=== PATIENT | female | born 1950 | race Hispanic/Latino ===

== ENCOUNTER 2017-12-07 08:55 | Day surgery (SDC) | payer MEDICARE ==
[2017-11-30 09:03] VITALS: BMI 20.2
[2017-12-07] MEDS ORDERED: Propofol 10 mg/ml Inj (20 ML) ONE ×2 (10:38→11:34)
[2017-12-07] MEDS ORDERED: Midazolam 2 MG/2 ML VIAL ONE (10:38)
[2017-12-07] MEDS ORDERED: Sodium Chloride 0.9% 1,000 ML IV SCH (11:00)
[2017-12-07 14:45] VITALS: BP 132/77; PULSE 74; RESP 16; TEMP 98.3; O2SAT 100
== END 2017-12-07 14:22 | disposition home or self-care (01) ==
LOC: ENDO 08:55
PROVIDERS: ATTEND Internal Medicine Gastroenterology
DX: K29.50 Unspecified chronic gastritis without bleeding (principal); K64.8 Other hemorrhoids; R63.4 Abnormal weight loss; R19.4 Change in bowel habit; Z80.0 Family history of malignant neoplasm of digestive organs
CPT/HCPCS: 43239; 45380; 88305; 88342; J2250; J2704; J7040 ×2

== ENCOUNTER 2018-03-28 22:33 | Inpatient (IN) | payer MEDICARE ==
[2018-03-28 22:51] VITALS: BMI 20.5
--- NOTE | 2018-03-28 23:24 | ED PDOC ---
Arrival/HPI - General Chief Complaint: Abdominal Pain Time Seen by Provider: 03/28/18 23:12 Historian: Patient - History of Present Illness Narrative History of Present Illness (Text): 03/28/18 23:20 68 year old female, whose past medical history includes hypothyroidism, appendectomy, and hysterectomy, presents to the emergency department complaining of abdominal discomfort which began earlier today associated with some nausea. Patient states she vomited up her supper. Patient denies any fever , chills, chest pain, shortness of breath, diarrhea, urinary symptoms, back pain , neck pain, headache, dizziness, or any other complaints. Time/Duration: Other (earlier today) Symptom Onset: Gradual Symptom Course: Unchanged Activities at Onset: Light Context: Home Past Medical History - Provider Review Nursing Documentation Reviewed: Yes - Infectious Disease Hx of Infectious Diseases: None - Reproductive Menopause: Yes - Cardiac Hx Cardiac Disorders: No - Pulmonary Hx Respiratory Disorders: No - Neurological Hx Neurological Disorder: No - HEENT Hx HEENT Disorder: No - Renal Hx Renal Disorder: No - Endocrine/Metabolic Hx Endocrine Disorders: Yes Hx Hypothyroidism: Yes - Hematological/Oncological Hx Blood Disorders: No - Integumentary Hx Dermatological Disorder: No - Musculoskeletal/Rheumatological Hx Musculoskeletal Disorders: Yes Hx Osteoporosis: Yes - Gastrointestinal Hx Gastrointestinal Disorders: No - Genitourinary/Gynecological Hx Genitourinary Disorders: No - Psychiatric Hx Psychophysiologic Disorder: No Hx Substance Use: No - Surgical History Hx Appendectomy: Yes Hx Hysterectomy: Yes Hx Tonsillectomy: Yes - Anesthesia Hx Anesthesia Reactions: No Hx Malignant Hyperthermia: No - Suicidal Assessment Feels Threatened In Home Enviroment: No Family/Social History - Physician Review Nursing Documentation Reviewed: Yes Family/Social History: No Known Family HX Smoking Status: Never Smoked Hx Alcohol Use: Yes (OCCASIONAL) Hx Substance Use: No Allergies/Home Meds Allergies/Adverse Reactions: Allergies Penicillins Allergy (Severe, Verified 03/28/18 22:50) GI UPSET legumes Adverse Reaction (Severe, Verified 03/28/18 22:50) GI UPSET Home Medications: Home Meds Medication Instructions Recorded Confirmed Ascorbate Calcium [Vitamin C] 500 mg PO BID 10/30/15 03/29/18 Cholecalciferol [Vitamin D 1000 IU] 1,000 units PO DAILY 10/30/15 03/29/18 Levothyroxine [Synthroid] 88 mcg PO DAILY 10/30/15 03/29/18 Magnesium Oxide [Magnesium] 250 mg PO DAILY 10/30/15 03/29/18 Aspirin [Ecotrin] 81 mg PO DAILY 11/30/17 03/29/18 Calcium Carb, Citrate/Vit D3 1 tab PO BID 11/30/17 03/29/18 [Citracal + D ER Tablet] Cyanocobalamin [Vitamin B12 100 100 mcg PO MWF 11/30/17 03/29/18 mcg Tab] Flaxseed Oil [Flax Oil] 1,200 mg PO DAILY 11/30/17 03/29/18 Review of Systems - Physician Review All systems were reviewed & negative as marked: Yes - Review of Systems Constitutional: absent: Fevers, Other (Chills) Respiratory: absent: SOB Cardiovascular: absent: Chest Pain Gastrointestinal: Abdominal Pain, Nausea, Vomiting. absent: Diarrhea Genitourinary Female: absent: Dysuria, Frequency, Hematuria Musculoskeletal: absent: Back Pain, Neck Pain Neurological: absent: Headache, Dizziness Physical Exam Vital Signs Reviewed: Yes Vital Signs Temp Pulse Resp BP Pulse Ox 03/28/18 22:56 97.6 F 88 19 143/77 98 03/28/18 22:52 97.6 F 88 19 143/77 98 Temperature: Afebrile Blood Pressure: Normal Pulse: Regular Respiratory Rate: Normal Appearance: Positive for: Well-Appearing, Non-Toxic, Comfortable Pain Distress: None Mental Status: Positive for: Alert and Oriented X 3 - Systems Exam Head: Present: Atraumatic, Normocephalic Pupils: Present: PERRL Extroacular Muscles: Present: EOMI Conjunctiva: Present: Normal Mouth: Present: Moist Mucous Membranes Neck: Present: Normal Range of Motion Respiratory/Chest: Present: Clear to Auscultation, Good Air Exchange. No: Respiratory Distress, Accessory Muscle Use Cardiovascular: Present: Regular Rate and Rhythm, Normal S1, S2. No: Murmurs Abdomen: No: Tenderness, Distention, Peritoneal Signs Back: Present: Normal Inspection Upper Extremity: Present: Normal Inspection. No: Cyanosis, Edema Lower Extremity: Present: Normal Inspection. No: Edema Neurological: Present: GCS=15, CN II-XII Intact, Speech Normal Skin: Present: Warm, Dry, Normal Color. No: Rashes Psychiatric: Present: Alert, Oriented x 3, Normal Insight, Normal Concentration Medical Decision Making ED Course and Treatment: 03/28/18 23:24 Impression: 68 year old female presents complaining of abdominal discomfort which began earlier today associated with some nausea and vomiting. Plan: -- CT Abd & Pelvis IV Contrast -- EKG -- Labs -- Chest X-ray -- Urinalysis -- Reassess and disposition Progress Notes: EXAM: CT Abdomen and Pelvis With Intravenous Contrast Dictated and Authenticated by: Christina Leigh MD 03/29/2018 3:09 AM IMPRESSION: 1. Distal small bowel obstruction. 2. Wall thickening versus incomplete distention of the gastric antrum. Correlate for clinical signs of gastritis. 03/29/18 03:21 CXR Impression: As read by me, no acute process. 03/29/18 04:[address] Rai whose aware and agrees with the plan. Accepts patient into his service. Request Dr. Fields and Dr. Archer for consult. Patient refuses NG tube placement at this time 03/29/18 04:08 Case discussed with surgical tech who is aware and agrees with the plan. - Lab Interpretations Lab Results: 03/28/18 23:50 03/28/18 23:50 Lab Results 03/28/18 23:50: Urine Color Yellow, Urine Appearance Cloudy, Urine pH 8.0, Ur Specific Steedman 1.015, Urine Protein Trace H, Urine Glucose (UA) Negative, Urine Ketones >=80, Urine Blood Negative, Urine Nitrate Negative, Urine Bilirubin Negative, Urine Urobilinogen 0.2, Ur Leukocyte Esterase Negative, Urine RBC Negative, Urine WBC Negative, Ur Epithelial Cells 3 - 4, Amorphous Sediment Moderate, Urine Bacteria Few, Urine Other Mucus 03/28/18 23:50: WBC 11.7 H D, RBC 4.72, Hgb 14.3, Hct 41.4, MCV 87.7, MCH 30.3, MCHC 34.5, RDW 13.2, Plt Count 189, MPV 11.3 H 03/28/18 23:50: Sodium 140, Potassium 4.1, Chloride 102, Carbon Dioxide 24, Anion Gap 18, BUN 16, Creatinine 0.7, Est GFR ( Amer) > 60, Est GFR (Non- Af Amer) > 60, Random Glucose 124 H, Calcium 9.9, Total Bilirubin 0.7, AST 35, ALT 25, Alkaline Phosphatase 75, Total Protein 7.6, Albumin 4.4, Globulin 3.2, Albumin/Globulin Ratio 1.4, Lipase 126 I have reviewed the lab results: Yes - RAD Interpretation Radiology Orders: 03/28/18 23:18 CHEST PORTABLE [RAD] Stat 03/28/18 23:19 ABD & PELVIS IV CONTRAST ONLY [CT] Stat - EKG Interpretation Interpreted by ED Physician: Yes Type: 12 lead EKG - Medication Orders Current Medication Orders: Sodium Chloride (Sodium Chloride 0.9%) 1,000 mls @ 100 mls/hr IV .Q10H STA Stop: 03/29/18 14:01 Ondansetron HCl (Zofran Inj) 4 mg IVP Q4H PRN PRN Reason: Nausea/Vomiting Stop: 03/29/18 11:00 Discontinued Medications Famotidine (Pepcid) 20 mg IVP STAT STA Stop: 03/28/18 23:32 Last Admin: 03/28/18 23:50 Dose: 20 mg IVP Administration Document 03/28/18 23:50 JOL (Rec: 03/29/18 00:25 JOL [id number]) Charges for Administration # of IVP Administrations 1 Sodium Chloride (Sodium Chloride 0.9%) 1,000 mls @ 999 mls/hr IV .Q1H1M STA Stop: 03/29/18 00:31 Last Admin: 03/28/18 23:50 Dose: 999 mls/hr eMAR Start Stop Document 03/28/18 23:50 JOL (Rec: 03/29/18 00:26 JOL [id number]) Intravenous Solution Start Date 03/28/18 Start Time 23:50 End Date 03/29/18 End time 00:51 Total Infusion Time 61 Ketorolac Tromethamine (Toradol) 30 mg IVP ONCE ONE Stop: 03/28/18 23:32 Last Admin: 03/28/18 23:50 Dose: 30 mg MAR Pain Assessment Document 03/28/18 23:50 JOL (Rec: 03/29/18 00:25 JOL [id number]) Pain Reassessment Is this a pain reassessment? No Sleep Is patient sleeping during reassessment? No Presence of Pain Presence of Pain Yes IVP Administration Document 03/28/18 23:50 JOL (Rec: 03/29/18 00:25 JOL [id number]) Charges for Administration # of IVP Administrations 1 Ondansetron HCl (Zofran Inj) 4 mg IVP ONCE ONE Stop: 03/28/18 23:32 Last Admin: 03/28/18 23:50 Dose: 4 mg IVP Administration Document 03/28/18 23:50 JOL (Rec: 03/29/18 00:25 JOL [id number]) Charges for Administration # of IVP Administrations 1 - Scribe Statement The provider has reviewed the documentation as recorded by the Monik Wolfe Provider Scribe Attestation: All medical record entries made by the Scribe were at my direction and personally dictated by me. I have reviewed the chart and agree that the record accurately reflects my personal performance of the history, physical exam, medical decision making, and the department course for this patient. I have also personally directed, reviewed, and agree with the discharge instructions and disposition. Disposition/Present on Arrival - Present on Arrival Any Indicators Present on Arrival: No History of DVT/PE: No History of Uncontrolled Diabetes: No Urinary Catheter: No History of Decub. Ulcer: No History Surgical Site Infection Following: None - Disposition Have Diagnosis and Disposition been Completed?: Yes Diagnosis: Small bowel obstruction Disposition: HOSPITALIZED Disposition Time: 04:05 Patient Problems: Current Active Problems Problem Status Onset Small bowel obstruction Acute Condition: STABLE Forms: [employer] (Estonian)
[2018-03-28] MEDS ORDERED: Sodium Chloride 0.9% 1,000 ML IV STA (23:31)
[2018-03-29 00:29] LABS: HEMOGLOBIN 14.3 g/dL (12.0-16.0); MEAN CELL VOLUME 87.7 fl (80.0-105.0); MEAN CORPUSCULAR HEMOGLOBIN 30.3 pg (25.0-35.0); MEAN CORPUSCULAR HGB CONC 34.5 g/dl (31.0-37.0); MEAN PLATELET VOLUME 11.3 fl (7.0-11.0); RBC 4.72 10^6/uL (3.5-6.1); RED CELL DISTRIBUTION WIDTH 13.2 % (11.5-14.5)
[2018-03-29 00:31] LABS: URINE BILIRUBIN NEGATIVE (NEGATIVE); URINE BLOOD NEGATIVE (NEGATIVE); URINE GLUCOSE (UA) NEGATIVE (NEGATIVE); URINE LEUKOCYTE ESTERASE NEGATIVE Leu/uL (NEGATIVE); URINE PROTEIN TRACE mg/dL (<30 mg/dL); URINE UROBILINOGEN 0.2 E.U./dL (<1 E.U./dL)
[2018-03-29 00:32] LABS: URINE APPEARANCE CLOUDY (CLEAR); URINE COLOR YELLOW (YELLOW)
[2018-03-29 00:33] LABS: WHITE BLOOD COUNT 11.7 10^3/ul (4.5-11.0)
[2018-03-29 00:43] LABS: ALB/GLOB RATIO 1.4 (1.1-1.8); ALBUMIN 4.4 g/dL (3.0-4.8); ALT/SGPT 25 U/L (7-56); AST/SGOT 35 U/L (14-36); BLOOD UREA NITROGEN 16 mg/dL (7-21); CALCIUM 9.9 mg/dL (8.4-10.5); GFR NON-AFRICAN AMERICAN > 60; LIPASE 126 U/L (23-300)
[2018-03-29 00:54] LABS: URINE AMORPHOUS SEDIMENT MODERATE; URINE BACTERIA FEW (NEG); URINE RBC NEGATIVE /hpf (0-2); URINE WBC NEGATIVE /hpf (0-6)
[2018-03-29] MEDS ORDERED: Iohexol 350 MG/100 ML VIAL ONE (01:50)
[2018-03-29] MEDS ORDERED: Sodium Chloride 0.9% 1,000 ML IV STA (04:02)
[2018-03-29] MEDS ORDERED: Morphine 2 mg/ml ISec IVP STA (04:29)
--- NOTE | 2018-03-29 05:02 | CP.PCM.CON ---
History of Present Illness - History of Present Illness History of Present Illness: General Surgery Consult Note for Dr. Archer Reason for Consult: SBO 68 F with PMH that includes hypothyroidism, s/p bilateral oophrectomy, s/p total hystrectomy presents to [facility] for complaint of abdominal pain. Patient was seen and evaluated in the ED. Patient states that pain began around 1800 while at home. She reports sudden onset. A couple hours before the pain began, patient was drinking liquids and had half of a sandwich. Patient states that she was passing gas and had a soft BM. Pain persisted until 2200 when she decided to come to the ED. Upon arrival, patient had 3 episodes of nausea/ vomiting with NBNB emesis. The contents were that of what she had eaten earlier. She rates that pain as severe. She describes it as constant and dull that was initially in lower abdomen then became more diffuse. Currently, the pain is in the epigastric region. She denies any aggravatig factors but states walking helped alleviate her symptoms. Denies any recent illness or sick contacts. Denies fever/chills, chest pain, SOB, palpitations, diarrhea, incontinence, urinary symptoms. PMD: Dr. Roman GI: Dr. Fields PMH: hypothyroidism, history of atrial fibrillation that resolved after cardioversion, osteoporosis Meds: As per MAR ALL: PCN (rash), legumes PSH: s/p bilateral oophrectomy, s/p total hystrectomy, s/p appendectomy FH: hypothyroidism, IL, Liver failure secondary to EtOH abuse Social: Denies tobacco/EtOH/illicit drug use, lives with , retired retail special event associate of [employer] - Constitutional Constitutional: absent: Chills, Fever - EENT Eyes: absent: Change in Vision, Pain Ears: absent: Ear Pain, Dizziness Nose/Mouth/Throat: absent: Dysphagia, Sore Throat - Breasts Breasts: absent: Mass, Pain - Cardiovascular Cardiovascular: absent: Chest Pain, Dyspnea - Respiratory Respiratory: absent: Dyspnea, Hemoptysis, Dyspnea on Exertion - Gastrointestinal Gastrointestinal: Abdominal Pain, Nausea, Vomiting. absent: Belching, Constipation, Diarrhea - Genitourinary Genitourinary: absent: Change in Urinary Stream, Difficulty Urinating, Dysuria - Musculoskeletal Musculoskeletal: absent: Numbness, Stiffness - Integumentary Integumentary: absent: Skin Pain, Wounds - Neurological Neurological: absent: Dizziness, Syncope, Tingling, Vertigo, Weakness - Psychiatric Psychiatric: absent: Anxiety, Depression - Endocrine Endocrine: absent: Fatigue, Palpitations, Polydipsia, Polyphagia, Polyuria - Hematologic/Lymphatic Hematologic: absent: Easy Bleeding, Easy Bruising, Lymphadenopathy Past Patient History - Infectious Disease Hx of Infectious Diseases: None - Past Social History Smoking Status: Never Smoked - CARDIAC Hx Cardiac Disorders: No - PULMONARY Hx Respiratory Disorders: No - NEUROLOGICAL Hx Neurological Disorder: No - HEENT Hx HEENT Problems: No - RENAL Hx Chronic Kidney Disease: No - ENDOCRINE/METABOLIC Hx Endocrine Disorders: Yes Hx Hypothyroidism: Yes - HEMATOLOGICAL/ONCOLOGICAL Hx Blood Disorders: No - INTEGUMENTARY Hx Dermatological Problems: No - MUSCULOSKELETAL/RHEUMATOLOGICAL Hx Musculoskeletal Disorders: Yes Hx Osteoporosis: Yes - GASTROINTESTINAL Hx Gastrointestinal Disorders: No - GENITOURINARY/GYNECOLOGICAL Hx Genitourinary Disorders: No - PSYCHIATRIC Hx Psychophysiologic Disorder: No Hx Substance Use: No - SURGICAL HISTORY Hx Appendectomy: Yes Hx Hysterectomy: Yes Hx Tonsillectomy: Yes - ANESTHESIA Hx Anesthesia Reactions: No Hx Malignant Hyperthermia: No Meds Allergies/Adverse Reactions: Allergies Allergy/AdvReac Type Severity Reaction Status Date / Time Penicillins Allergy Severe GI UPSET Verified 03/28/18 22:50 legumes AdvReac Severe GI UPSET Verified 03/28/18 22:50 - Medications Medications: Current Medications Sodium Chloride (Sodium Chloride 0.9%) 1,000 mls @ 100 mls/hr IV .Q10H STA Stop: 03/29/18 14:01 Last Admin: 03/29/18 04:17 Dose: 100 mls/hr Physical Exam - Constitutional Appears: Well, Non-toxic, No Acute Distress - Head Exam Head Exam: ATRAUMATIC, NORMOCEPHALIC - Eye Exam Eye Exam: EOMI, Normal appearance Pupil Exam: PERRL - ENT Exam ENT Exam: Mucous Membranes Dry - Respiratory Exam Respiratory Exam: NORMAL BREATHING PATTERN - Cardiovascular Exam Cardiovascular Exam: REGULAR RHYTHM - GI/Abdominal Exam GI & Abdominal Exam: Normal Bowel Sounds, Soft, Tenderness (lower abdomen bilaterally, epigastrium). absent: Distended, Firm, Guarding, Rebound, Rigid - Extremities Exam Extremities exam: Positive for: normal capillary refill, pedal pulses present. Negative for: calf tenderness - Back Exam Back exam: absent: CVA tenderness (L), CVA tenderness (R) - Neurological Exam Neurological exam: Alert, Oriented x3 - Psychiatric Exam Psychiatric exam: Normal Affect, Normal Mood - Skin Skin Exam: Dry, Intact, Normal Color, Warm Results - Vital Signs Recent Vital Signs: Last Vital Signs Temp 97.6 F 03/28/18 22:56 Pulse 88 03/28/18 22:56 Resp 19 03/28/18 22:56 BP 143/77 03/28/18 22:56 Pulse Ox 98 03/28/18 22:56 - Labs Result Diagrams: 03/28/18 23:50 03/28/18 23:50 Assessment & Plan - Assessment and Plan (Free Text) Assessment: 68 F who presents with abdominal pain found to have distal SBO on CT abd/pelvis Plan: -NPO -IV fluids -Analgesics/Anti-emetics PRN -Strict I's & O's -Serial abdominal exams -Monitor for bowel function -NGT if patient develops more nausea/vomiting -Further recommendations as per Dr. Gianni Nielson PGY2 - Date & Time Date: 03/29/18 Time: 05:00
[2018-03-29] MEDS ORDERED: HYDROmorphone 0.5 mg/0.5 ml ISec IVP PRN (05:51)
--- NOTE | 2018-03-29 08:12 | CP.PCM.HP ---
<Yong Etienne - Last Filed: 03/29/18 12:29> History of Present Illness - History of Present Illness History of Present Illness: History and Physical for Dr. Craft 68 year old female with past medical history of hypothyroidism and a-fib s/p cardioversion presented to the ED for 4 hour history of abdominal pain. Patient states she was eating dinner when she began noticing the pain. Pain was located through her abdomen. Patient states she has been passing gas and has had several bowel movements yesterday, with her last being at the hospital. Patient also admits to having multiple episodes of vomiting. Pain is currently well controlled with pain medication. CT abdomen/pelvis performed in ED displayed distal small bowel obstruction. Patient denies chest pain, shortness of breath, nausea, vomiting, diarrhea, fever, chills. PMH: hypothyroidism, a-fib s/p cardioversion Meds: Reviewed, As per MAR ALL: PCN (rash), legumes PSH: Hysterecomty, b/l oopherectomy, appendectomy FH: hypothyroidism, Social: Denies tobacco, alcohol, or llicit drug use Present on Admission - Present on Admission Any Indicators Present on Admission: No Review of Systems - Review of Systems Review of Systems: 12 point ROS as per HPI, otherwise negative Past Patient History - Infectious Disease Hx of Infectious Diseases: None - Past Social History Smoking Status: Never Smoked - CARDIAC Hx Cardiac Disorders: No - PULMONARY Hx Respiratory Disorders: No - NEUROLOGICAL Hx Neurological Disorder: No - HEENT Hx HEENT Problems: No - RENAL Hx Chronic Kidney Disease: No - ENDOCRINE/METABOLIC Hx Endocrine Disorders: Yes Hx Hypothyroidism: Yes - HEMATOLOGICAL/ONCOLOGICAL Hx Blood Disorders: No - INTEGUMENTARY Hx Dermatological Problems: No - MUSCULOSKELETAL/RHEUMATOLOGICAL Hx Musculoskeletal Disorders: Yes Hx Osteoporosis: Yes - GASTROINTESTINAL Hx Gastrointestinal Disorders: No - GENITOURINARY/GYNECOLOGICAL Hx Genitourinary Disorders: No - PSYCHIATRIC Hx Psychophysiologic Disorder: No Hx Substance Use: No - SURGICAL HISTORY Hx Appendectomy: Yes Hx Hysterectomy: Yes Hx Tonsillectomy: Yes - ANESTHESIA Hx Anesthesia Reactions: No Hx Malignant Hyperthermia: No Meds Allergies/Adverse Reactions: Allergies Allergy/AdvReac Type Severity Reaction Status Date / Time Penicillins Allergy Severe GI UPSET Verified 03/28/18 22:50 legumes AdvReac Severe GI UPSET Verified 03/28/18 22:50 Physical Exam - Constitutional Appears: Non-toxic, No Acute Distress - Head Exam Head Exam: ATRAUMATIC, NORMAL INSPECTION, NORMOCEPHALIC - Eye Exam Eye Exam: EOMI, Normal appearance - ENT Exam ENT Exam: Mucous Membranes Moist, Normal Exam - Respiratory Exam Respiratory Exam: Clear to Auscultation Bilateral, NORMAL BREATHING PATTERN - Cardiovascular Exam Cardiovascular Exam: RRR, +S1, +S2 - GI/Abdominal Exam GI & Abdominal Exam: Hyperactive Bowel Sounds, Soft, Tenderness (Mild, diffuse throughout abdomen) - Extremities Exam Extremities exam: Positive for: normal inspection. Negative for: calf tenderness, pedal edema - Neurological Exam Neurological exam: Alert, CN II-XII Intact, Oriented x3 - Psychiatric Exam Psychiatric exam: Normal Affect, Normal Mood - Skin Skin Exam: Intact, Normal Color, Warm Results - Vital Signs Recent Vital Signs: Last Vital Signs Temp 98.7 F 03/29/18 06:20 Pulse 82 03/29/18 06:20 Resp 20 03/29/18 06:20 BP 137/74 03/29/18 06:20 Pulse Ox 98 03/29/18 05:53 - Labs Result Diagrams: 03/28/18 23:50 03/28/18 23:50 Assessment & Plan - Assessment and Plan (Free Text) Plan: 1. Small bowel obstruction 2. Hypothyroidism Patient will be placed on bowel rest at this time. Patient has been evaluated by surgical team who recommend conservative management and advancing diet slowly. Patient will be continued on Dilaudid for pain control. Awaiting GI recommendations. Will continue current medical regimen and continue to monitor closely. Jaimie, PGY-3 <Jose Antonio Craft - Last Filed: 03/29/18 21:26> Results - Vital Signs Recent Vital Signs: Last Vital Signs Temp 98.4 F 03/29/18 14:00 Pulse 78 03/29/18 14:00 Resp 18 03/29/18 14:00 BP 126/68 03/29/18 14:00 Pulse Ox 99 03/29/18 14:00 - Labs Result Diagrams: 03/29/18 08:00 03/29/18 08:00 Labs: Laboratory Results - last 24 hr 03/29/18 03/29/18 08:00 08:00 WBC 10.4 RBC 4.25 Hgb 12.9 Hct 37.5 MCV 88.2 MCH 30.4 MCHC 34.4 RDW 13.5 Plt Count 186 MPV 10.3 Sodium 140 Potassium 4.7 Chloride 109 H Carbon Dioxide 23 Anion Gap 13 BUN 14 Creatinine 0.8 Est GFR ( Amer) > 60 Est GFR (Non-Af Amer) > 60 Random Glucose 113 H Calcium 9.0 Total Bilirubin 0.5 AST 22 ALT 23 Alkaline Phosphatase 56 Total Protein 6.1 Albumin 3.4 Globulin 2.7 Albumin/Globulin Ratio 1.2 Assessment & Plan - Assessment and Plan (Free Text) Plan: Pt seen and examined. I have reviewed the note of the neuropsychology medical consultant and agree with it. I have discussed the assessment and plan with the resident. I have reviewed the patient's labs and medications. Pt with SBO on CT. She said the pain started last night. Will start on clear liquid. She was seen by surgery. She has good bowel sounds. Pain is controlled..
--- NOTE | 2018-03-29 08:14 | RAD ---
Date of service: 03/29/2018 HISTORY: abdominal pain COMPARISON: No prior. FINDINGS: LUNGS: Trace granulomatous changes are felt to present the left apex medially. Remaining lung brian appear clear. PLEURA: No significant pleural effusion identified, no pneumothorax apparent. CARDIOVASCULAR: Normal. OSSEOUS STRUCTURES: No significant abnormalities. VISUALIZED UPPER ABDOMEN: Normal. OTHER FINDINGS: None. IMPRESSION: No acute cardiopulmonary disease appreciated.
[2018-03-29 08:22] LABS: HEMOGLOBIN 12.9 g/dL (12.0-16.0); MEAN CELL VOLUME 88.2 fl (80.0-105.0); MEAN CORPUSCULAR HEMOGLOBIN 30.4 pg (25.0-35.0); MEAN CORPUSCULAR HGB CONC 34.4 g/dl (31.0-37.0); MEAN PLATELET VOLUME 10.3 fl (7.0-11.0); RBC 4.25 10^6/uL (3.5-6.1); RED CELL DISTRIBUTION WIDTH 13.5 % (11.5-14.5); WHITE BLOOD COUNT 10.4 10^3/ul (4.5-11.0)
[2018-03-29 08:33] LABS: ALB/GLOB RATIO 1.2 (1.1-1.8); ALBUMIN 3.4 g/dL (3.0-4.8); ALT/SGPT 23 U/L (7-56); AST/SGOT 22 U/L (14-36); BLOOD UREA NITROGEN 14 mg/dL (7-21); GFR NON-AFRICAN AMERICAN > 60
[2018-03-29] MEDS: Levothyroxine 88 MCG TAB PO SCH (08:35)
--- NOTE | 2018-03-29 09:37 | CARD ---
APPROVED REPORT Date of service: 03/29/2018 EKG Measurement Heart [id number] <Conclusion> Normal sinus rhythm LAD Small q waves inferiorly, possible IMI, age unkown RVCD Low voltage ECG Prolonged QTc
[2018-03-29] MEDS ORDERED: Morphine 2 mg/ml ISec IVP PRN (10:04)
--- NOTE | 2018-03-29 10:17 | CP.PCM.CON ---
<Aguilar James - Last Filed: 03/29/18 20:02> History of Present Illness - History of Present Illness History of Present Illness: GI Consult Note for Dr. Fields's Service - Willie PGY2 Reason for Consult: SBO Mrs. Gold is a 68 year old female with a past medical history significant for Hypothyroidism, Atrial Fibrillation s/p cardioversion, Osteoporosis and history of multiple intra-abdominal surgeries who presented to the [facility] with a chief complaint of abdominal pain with associated nausea and multiple episodes of NBNB vomiting. Patient reports that this started yesterday afternoon around 1800 after eating a salad for dinner. Patient describes the pain as a diffuse constant "gas like pressure" that started in her lower abdomen. The pain is made worse with PO intake and is relieved to some degree with ambulation. Prior to and after eating salad for dinner, patient endorses passing flatus and multiple "small" solid BM's. Her last BM was after presentation to the ED around 2200 last night. She further denies any recent illness, sick contacts, fevers, chills, headache, chest pain, SOB, constipation , diarrhea, hematemesis, melena, hematochezia, changes in urine output, skin changes or any numbness/tingling/weakness of any extremity. PMH: Hypothyroidism, Atrial Fibrillation s/p cardioversion, and Osteoporosis PSH: Appendectomy, Bilateral Oophorectomy and Total Hysterectomy Family History: Hypothyroidism, DC, Liver failure secondary to EtOH abuse Social History: Denies any tobacco, alcohol or illicit drug use; Lives with ; Retired backroom associate Allergies: PCN and Legumes Home Medications: As per [facility] PMD: Dr. Roman GI: Dr. Fields Review of Systems - Review of Systems Review of Systems: As stated in HPI, otherwise negative Past Patient History - Infectious Disease Hx of Infectious Diseases: None - Past Social History Smoking Status: Never Smoked - CARDIAC Hx Cardiac Disorders: No - PULMONARY Hx Respiratory Disorders: No - NEUROLOGICAL Hx Neurological Disorder: No - HEENT Hx HEENT Problems: No - RENAL Hx Chronic Kidney Disease: No - ENDOCRINE/METABOLIC Hx Endocrine Disorders: Yes Hx Hypothyroidism: Yes - HEMATOLOGICAL/ONCOLOGICAL Hx Blood Disorders: No - INTEGUMENTARY Hx Dermatological Problems: No - MUSCULOSKELETAL/RHEUMATOLOGICAL Hx Musculoskeletal Disorders: Yes Hx Osteoporosis: Yes - GASTROINTESTINAL Hx Gastrointestinal Disorders: No - GENITOURINARY/GYNECOLOGICAL Hx Genitourinary Disorders: No - PSYCHIATRIC Hx Psychophysiologic Disorder: No Hx Substance Use: No - SURGICAL HISTORY Hx Appendectomy: Yes Hx Hysterectomy: Yes Hx Tonsillectomy: Yes - ANESTHESIA Hx Anesthesia Reactions: No Hx Malignant Hyperthermia: No Meds Allergies/Adverse Reactions: Allergies Allergy/AdvReac Type Severity Reaction Status Date / Time Penicillins Allergy Severe GI UPSET Verified 03/28/18 22:50 legumes AdvReac Severe GI UPSET Verified 03/28/18 22:50 - Medications Medications: Current Medications Sodium Chloride (Sodium Chloride 0.9%) 1,000 mls @ 100 mls/hr IV .Q10H [facility] Stop: 03/29/18 14:01 Last Admin: 03/29/18 04:17 Dose: 100 mls/hr Lactated Ringer's (Lactated Ringer's) 1,000 mls @ 100 mls/hr IV .Q10H [facility] Levothyroxine Sodium (Synthroid) 88 mcg PO ACB [facility] Last Admin: 03/29/18 08:35 Dose: 88 mcg Morphine Sulfate (Morphine) 2 mg IVP Q4H PRN PRN Reason: Pain, severe (8-10) Ondansetron HCl (Zofran Inj) 4 mg IVP Q6H PRN PRN Reason: Nausea/Vomiting Pantoprazole Sodium (Protonix Inj) 40 mg IVP DAILY [facility] Physical Exam - Constitutional Appears: Non-toxic, No Acute Distress - Head Exam Head Exam: ATRAUMATIC, NORMOCEPHALIC - Eye Exam Eye Exam: EOMI, Normal appearance - ENT Exam ENT Exam: Mucous Membranes Moist, Normal Exam - Neck Exam Neck exam: Positive for: Full Rom - Respiratory Exam Respiratory Exam: Clear to Auscultation Bilateral, NORMAL BREATHING PATTERN. absent: Accessory Muscle Use, Chest Wall Tenderness, Decreased Breath Sounds, Prolonged Expiratory Phase, Rales, Rhonchi, Wheezes, Respiratory Distress, Stridor - Cardiovascular Exam Cardiovascular Exam: REGULAR RHYTHM, RRR, +S1, +S2. absent: Bradycardia, Tachycardia, Clicks, Diastolic murmur, Gallop, Irregular Rhythm, JVD, Rubs, +S4 , Systolic Murmur - GI/Abdominal Exam GI & Abdominal Exam: Hypoactive Bowel Sounds, Soft. absent: Bruit, Diminished Bowel Sounds, Distended, Firm, Guarding, Hernia, Hyperactive Bowel Sounds, Mass , Normal Bowel Sounds, Organomegaly, Rebound, Rigid, Tenderness - Extremities Exam Extremities exam: Positive for: full ROM, normal capillary refill, pedal pulses present - Neurological Exam Neurological exam: Alert, Oriented x3 - Psychiatric Exam Psychiatric exam: Normal Affect, Normal Mood - Skin Skin Exam: Dry, Intact, Normal Color, Warm Results - Vital Signs Recent Vital Signs: Last Vital Signs Temp 98.7 F 03/29/18 06:20 Pulse 82 03/29/18 06:20 Resp 20 03/29/18 06:20 BP 137/74 03/29/18 06:20 Pulse Ox 98 03/29/18 06:00 - Labs Result Diagrams: 03/29/18 08:00 03/29/18 08:00 Labs: Laboratory Results - last 24 hr 03/29/18 03/29/18 08:00 08:00 WBC 10.4 RBC 4.25 Hgb 12.9 Hct 37.5 MCV 88.2 MCH 30.4 MCHC 34.4 RDW 13.5 Plt Count 186 MPV 10.3 Sodium 140 Potassium 4.7 Chloride 109 H Carbon Dioxide 23 Anion Gap 13 BUN 14 Creatinine 0.8 Est GFR ( Amer) > 60 Est GFR (Non-Af Amer) > 60 Random Glucose 113 H Calcium 9.0 Total Bilirubin 0.5 AST 22 ALT 23 Alkaline Phosphatase 56 Total Protein 6.1 Albumin 3.4 Globulin 2.7 Albumin/Globulin Ratio 1.2 Assessment & Plan - Assessment and Plan (Free Text) Assessment: 68 year old female with a past medical history significant for Hypothyroidism, Atrial Fibrillation s/p cardioversion, Osteoporosis and history of multiple intra-abdominal surgeries who presented to the [facility] with a chief complaint of abdominal pain with associated nausea and multiple episodes of NBNB vomiting. Patient was found to have a distal SBO on CT Abdomen/Pelvis in ED. Surgery and GI were consulted. Plan: -CT Abdomen/Pelvis showed distal SBO with 2.8cm of small bowel distention -EGD/Colonoscopy from 11/[address] Fields reviewed; No findings to correlate with current presentation -Currently on CLD; ADAT -Continue IV hydration -Patient requested her pain medications be deescalated from Dilaudid to Morphine ; Continue Morphine IVP 2mg Q4H PRN for severe pain -Continue daily PPI -Further recommendations per Dr. Fields Patient seen and case discussed with attending, Dr. Fields. - Date & Time Date: 03/29/18 Time: 10:19 <Conchis Fields V - Last Filed: 03/29/18 23:42> Meds - Medications Medications: Current Medications Lactated Ringer's (Lactated Ringer's) 1,000 mls @ 100 mls/hr IV .Q10H [facility] Last Admin: 03/29/18 14:56 Dose: 100 mls/hr Levothyroxine Sodium (Synthroid) 88 mcg PO ACB [facility] Last Admin: 03/29/18 08:35 Dose: 88 mcg Morphine Sulfate (Morphine) 2 mg IVP Q4H PRN PRN Reason: Pain, severe (8-10) Last Admin: 03/29/18 17:34 Dose: 2 mg Ondansetron HCl (Zofran Inj) 4 mg IVP Q6H PRN PRN Reason: Nausea/Vomiting Last Admin: 03/29/18 15:57 Dose: 4 mg Pantoprazole Sodium (Protonix Inj) 40 mg IVP DAILY [facility] Last Admin: 03/29/18 10:56 Dose: 40 mg Results - Vital Signs Recent Vital Signs: Last Vital Signs Temp 98.2 F 03/29/18 22:33 Pulse 90 03/29/18 22:33 Resp 20 03/29/18 22:33 BP 137/75 03/29/18 22:33 Pulse Ox 97 03/29/18 22:33 - Labs Result Diagrams: 03/29/18 08:00 03/29/18 08:00 Labs: Laboratory Results - last 24 hr 03/29/18 03/29/18 08:00 08:00 WBC 10.4 RBC 4.25 Hgb 12.9 Hct 37.5 MCV 88.2 MCH 30.4 MCHC 34.4 RDW 13.5 Plt Count 186 MPV 10.3 Sodium 140 Potassium 4.7 Chloride 109 H Carbon Dioxide 23 Anion Gap 13 BUN 14 Creatinine 0.8 Est GFR ( Amer) > 60 Est GFR (Non-Af Amer) > 60 Random Glucose 113 H Calcium 9.0 Total Bilirubin 0.5 AST 22 ALT 23 Alkaline Phosphatase 56 Total Protein 6.1 Albumin 3.4 Globulin 2.7 Albumin/Globulin Ratio 1.2 Attending/Attestation - Attestation I have personally seen and examined this patient.: Yes I have fully participated in the care of the patient.: Yes I have reviewed all pertinent clinical information: Yes
--- NOTE | 2018-03-29 12:06 | CT ---
Date of service: 03/29/2018 PROCEDURE: CT Abdomen and Pelvis with contrast HISTORY: abdominal pain COMPARISON: None. TECHNIQUE: Contrast dose: 100 cc of Omni 350 Radiation dose: Total exam DLP = 236 mGy-cm. This CT exam was performed using one or more of the following dose reduction techniques: Automated exposure control, adjustment of the mA and/or kV according to patient size, and/or use of iterative reconstruction technique. FINDINGS: LOWER THORAX: Unremarkable. LIVER: Unremarkable. No gross lesion or ductal dilatation. GALLBLADDER AND BILE DUCTS: Unremarkable. PANCREAS: Unremarkable. No gross lesion or ductal dilatation. SPLEEN: Unremarkable. ADRENALS: Unremarkable. No mass. KIDNEYS AND URETERS: Unremarkable. No hydronephrosis. No solid mass. VASCULATURE: Unremarkable. No aortic aneurysm. BOWEL: Multiple dilated loops of small bowel are seen in the pelvis consistent with distal small-bowel obstruction. The exact transition point is not identified. There is mural thickening in the gastric antrum. This could represent gastritis APPENDIX: Normal appendix. PERITONEUM: Unremarkable. No free fluid. No free air. LYMPH NODES: Unremarkable. No enlarged lymph nodes. BLADDER: Unremarkable. REPRODUCTIVE: Unremarkable. BONES: No acute fracture. OTHER FINDINGS: None. IMPRESSION: Multiple dilated loops of small bowel are seen in the pelvis consistent with distal small-bowel obstruction. The exact transition point is not identified. There is mural thickening in the gastric antrum. This could represent gastritis
[2018-03-29] MEDS: Lactated Ringer's 1,000 ML IV SCH (14:56)
[2018-03-30] MEDS: Lactated Ringer's 1,000 ML IV SCH (01:09)
[2018-03-30 06:59] LABS: BASO # 0.02 K/mm3 (0.0-2.0); BASO % 0.2 % (0.0-3.0); GRAN # 9.33 (1.4-6.5); GRAN % 81.1 % (50.0-68.0); HEMOGLOBIN 13.4 g/dL (12.0-16.0); LYMPH % 8.9 % (22.0-35.0); MEAN CELL VOLUME 89.1 fl (80.0-105.0); MEAN CORPUSCULAR HEMOGLOBIN 29.7 pg (25.0-35.0); MEAN CORPUSCULAR HGB CONC 33.3 g/dl (31.0-37.0); MEAN PLATELET VOLUME 11.3 fl (7.0-11.0); MONO # 1.1 (0.1-0.6); MONO % 9.8 % (1.0-6.0); RBC 4.51 10^6/uL (3.5-6.1); RED CELL DISTRIBUTION WIDTH 13.7 % (11.5-14.5); WHITE BLOOD COUNT 11.5 10^3/ul (4.5-11.0)
[2018-03-30 07:48] LABS: ALB/GLOB RATIO 1.3 (1.1-1.8); ALBUMIN 3.6 g/dL (3.0-4.8); ALT/SGPT 28 U/L (7-56); AST/SGOT 25 U/L (14-36); BLOOD UREA NITROGEN 12 mg/dL (7-21); CALCIUM 9.2 mg/dL (8.4-10.5); GFR NON-AFRICAN AMERICAN > 60
[2018-03-30] MEDS: Levothyroxine 88 MCG TAB PO SCH (08:21)
--- NOTE | 2018-03-30 10:17 | RAD ---
Date of service: 03/30/2018 HISTORY: SBO, ng tube placed COMPARISON: 03/29/2018 FINDINGS: LUNGS: No active pulmonary disease. PLEURA: No significant pleural effusion identified, no pneumothorax apparent. CARDIOVASCULAR: Normal. OSSEOUS STRUCTURES: No significant abnormalities. VISUALIZED UPPER ABDOMEN: Nasogastric tube in satisfactory position OTHER FINDINGS: None. IMPRESSION: No active disease. Nasogastric tube in satisfactory position
--- NOTE | 2018-03-30 10:25 | CP.PCM.PN ---
Subjective - Date & Time of Evaluation Date of Evaluation: 03/30/18 Time of Evaluation: 10:28 - Subjective Subjective: General Surgery Note for Dr. Acrher Patient seen and examined at bedside. Overnight, patient had episode of nausea/ vomiting which produced 300 cc of bilious emesis. At that time, she also complained of worsening distention and pain. NGT was inserted and nothing came out initially. She has had 250cc of clear output since insertion. Patient today states pain is controlled and distention has resolved. She denies fever/chills. She denies flatus or BM. Objective - Vital Signs/Intake and Output Vital Signs (last 24 hours): Temp Pulse Resp BP Pulse Ox 98 F 87 18 143/80 98 03/30/18 06:00 03/30/18 06:00 03/30/18 06:00 03/30/18 06:00 03/30/18 06:00 Intake and Output: 03/30/18 03/30/18 06:59 18:59 Output Total 900 Balance -900 - Medications Medications: Current Medications Lactated Ringer's (Lactated Ringer's) 1,000 mls @ 100 mls/hr IV .Q10H [facility] Last Admin: 03/30/18 01:09 Dose: 100 mls/hr Levothyroxine Sodium (Synthroid) 88 mcg PO ACB [facility] Last Admin: 03/30/18 08:21 Dose: Not Given Morphine Sulfate (Morphine) 2 mg IVP Q4H PRN PRN Reason: Pain, severe (8-10) Last Admin: 03/29/18 17:34 Dose: 2 mg Ondansetron HCl (Zofran Inj) 4 mg IVP Q6H PRN PRN Reason: Nausea/Vomiting Last Admin: 03/29/18 15:57 Dose: 4 mg Pantoprazole Sodium (Protonix Inj) 40 mg IVP DAILY [facility] Last Admin: 03/30/18 09:15 Dose: 40 mg - Labs Labs: 03/30/18 06:15 03/30/18 06:30 - Constitutional Appears: Non-toxic, No Acute Distress - Head Exam Head Exam: ATRAUMATIC, NORMOCEPHALIC - Eye Exam Eye Exam: EOMI, Normal appearance Pupil Exam: PERRL - ENT Exam ENT Exam: Mucous Membranes Moist Additional comments: NGT in place - Respiratory Exam Respiratory Exam: NORMAL BREATHING PATTERN - Cardiovascular Exam Cardiovascular Exam: REGULAR RHYTHM - GI/Abdominal Exam GI & Abdominal Exam: Soft, Normal Bowel Sounds. absent: Distended, Firm, Guarding, Tenderness, Hernia, Mass, Rebound - Extremities Exam Extremities Exam: Normal Capillary Refill - Back Exam Back Exam: absent: CVA tenderness (L), CVA tenderness (R) - Neurological Exam Neurological Exam: Alert, Awake, Oriented x3 - Psychiatric Exam Psychiatric exam: Normal Affect, Normal Mood - Skin Skin Exam: Dry, Intact, Normal Color, Warm Assessment and Plan - Assessment and Plan (Free Text) Assessment: 68 F who presents with SBO Plan: -NPO -NGT to low continuous wall suction, f/u output -IV fluids -Analgesics/Anti-emetics PRN -Strict I's & O's -Serial abdominal exams -Monitor for bowel function -Further recommendations as per Dr. Gianni Nielson PGY2
--- NOTE | 2018-03-30 11:08 | CP.PCM.PN ---
<Yong Etienne - Last Filed: 03/30/18 11:04> Subjective - Date & Time of Evaluation Date of Evaluation: 03/30/18 Time of Evaluation: 11:04 - Subjective Subjective: Patient seen and examined at bedside. Patient with nausea and vomiting overnight , NGT placed. Patient states she feels nauseous. Patient is passing gas. Denies chest pain, shortness of breath, diarrhea, fever, chills. Objective - Vital Signs/Intake and Output Vital Signs (last 24 hours): Temp Pulse Resp BP Pulse Ox 98 F 87 18 143/80 98 03/30/18 06:00 03/30/18 06:00 03/30/18 06:00 03/30/18 06:00 03/30/18 06:00 Intake and Output: 03/30/18 03/30/18 06:59 18:59 Output Total 900 Balance -900 - Medications Medications: Current Medications Lactated Ringer's (Lactated Ringer's) 1,000 mls @ 100 mls/hr IV .Q10H [facility] Last Admin: 03/30/18 01:09 Dose: 100 mls/hr Levothyroxine Sodium (Synthroid) 88 mcg PO ACB [facility] Last Admin: 03/30/18 08:21 Dose: Not Given Morphine Sulfate (Morphine) 2 mg IVP Q4H PRN PRN Reason: Pain, severe (8-10) Last Admin: 03/29/18 17:34 Dose: 2 mg Ondansetron HCl (Zofran Inj) 4 mg IVP Q6H PRN PRN Reason: Nausea/Vomiting Last Admin: 03/29/18 15:57 Dose: 4 mg Pantoprazole Sodium (Protonix Inj) 40 mg IVP DAILY [facility] Last Admin: 03/30/18 09:15 Dose: 40 mg - Labs Labs: 03/30/18 06:15 03/30/18 06:30 - Constitutional Appears: Non-toxic, No Acute Distress - Head Exam Head Exam: ATRAUMATIC, NORMAL INSPECTION, NORMOCEPHALIC - Respiratory Exam Respiratory Exam: Clear to Ausculation Bilateral, NORMAL BREATHING PATTERN. absent: Rales, Rhonchi, Wheezes - Cardiovascular Exam Cardiovascular Exam: RRR, +S1, +S2 - GI/Abdominal Exam GI & Abdominal Exam: Soft, Tenderness (Mild, diffuse), Hyperactive Bowel Sounds. absent: Distended, Rebound - Extremities Exam Extremities Exam: Normal Inspection. absent: Calf Tenderness, Pedal Edema - Neurological Exam Neurological Exam: Alert, Awake, CN II-XII Intact, Oriented x3 - Psychiatric Exam Psychiatric exam: Normal Affect, Normal Mood - Skin Skin Exam: Intact, Normal Color, Warm Assessment and Plan - Assessment and Plan (Free Text) Plan: 1. Small bowel obstruction 2. Hypothyroidism Patient will be continued on bowel rest due to nausea and vomiting. Patient has been evaluated by surgical team who recommend continuing conservative management. Patient changed from Dilaudid to morphine for pain control. Conservative management as per GI. Will continue current medical regimen and continue to monitor closely. Jaimie, PGY-3 <Jose Antonio Craft S - Last Filed: 03/30/18 20:22> Objective - Vital Signs/Intake and Output Vital Signs (last 24 hours): Temp Pulse Resp BP Pulse Ox 98.1 F 87 18 145/74 99 03/30/18 14:39 03/30/18 14:39 03/30/18 14:39 03/30/18 14:39 03/30/18 14:39 Intake and Output: 03/30/18 03/31/18 18:59 06:59 Output Total 50 Balance -50 - Medications Medications: Current Medications Lactated Ringer's (Lactated Ringer's) 1,000 mls @ 100 mls/hr IV .Q10H [facility] Last Admin: 03/30/18 01:09 Dose: 100 mls/hr Levothyroxine Sodium (Synthroid) 88 mcg IVP DAILY [facility] Morphine Sulfate (Morphine) 2 mg IVP Q4H PRN PRN Reason: Pain, severe (8-10) Last Admin: 03/29/18 17:34 Dose: 2 mg Ondansetron HCl (Zofran Inj) 4 mg IVP Q6H PRN PRN Reason: Nausea/Vomiting Last Admin: 03/29/18 15:57 Dose: 4 mg Pantoprazole Sodium (Protonix Inj) 40 mg IVP DAILY [facility] Last Admin: 03/30/18 09:15 Dose: 40 mg - Labs Labs: 03/30/18 06:15 03/30/18 06:30 PT 12.8 SECONDS (9.4-12.5) H 03/30/18 16:43 INR 1.12 03/30/18 16:43 APTT 25.6 Seconds (25.1-36.5) 03/30/18 16:43 Assessment and Plan - Assessment and Plan (Free Text) Plan: Pt seen and examined. I have reviewed the note of the paramedical aide and agree with it. I have discussed the assessment and plan with the resident. I have reviewed the patient's labs and medications. Pt with SBO. She has an NG tube. Surgery is following the pt. She does not have abd pain. Will continue with conservative treatment.
--- NOTE | 2018-03-30 11:25 | CP.PCM.PN ---
Subjective - Date & Time of Evaluation Date of Evaluation: 03/30/18 Time of Evaluation: 09:50 - Subjective Subjective: S&E at bedside, chart reviewed, NGT placed last night, currently hava light brown drainage, as per nursing 250cc drain. Patient abdominal pain better after NGT was pulled back last night. No overt GI bleeding, sob , CP, fever or chills. No N/V now, no BM or gas. Objective - Vital Signs/Intake and Output Vital Signs (last 24 hours): Temp Pulse Resp BP Pulse Ox 98 F 87 18 143/80 98 03/30/18 06:00 03/30/18 06:00 03/30/18 06:00 03/30/18 06:00 03/30/18 06:00 Intake and Output: 03/30/18 03/30/18 06:59 18:59 Output Total 900 Balance -900 - Medications Medications: Current Medications Lactated Ringer's (Lactated Ringer's) 1,000 mls @ 100 mls/hr IV .Q10H [facility] Last Admin: 03/30/18 01:09 Dose: 100 mls/hr Levothyroxine Sodium (Synthroid) 88 mcg PO ACB [facility] Last Admin: 03/30/18 08:21 Dose: Not Given Morphine Sulfate (Morphine) 2 mg IVP Q4H PRN PRN Reason: Pain, severe (8-10) Last Admin: 03/29/18 17:34 Dose: 2 mg Ondansetron HCl (Zofran Inj) 4 mg IVP Q6H PRN PRN Reason: Nausea/Vomiting Last Admin: 03/29/18 15:57 Dose: 4 mg Pantoprazole Sodium (Protonix Inj) 40 mg IVP DAILY [facility] Last Admin: 03/30/18 09:15 Dose: 40 mg - Labs Labs: 03/30/18 06:15 03/30/18 06:30 - Constitutional Appears: No Acute Distress - Head Exam Head Exam: NORMOCEPHALIC - Eye Exam Eye Exam: Normal appearance. absent: Scleral icterus - ENT Exam ENT Exam: Mucous Membranes Dry - Neck Exam Neck Exam: Normal Inspection - Respiratory Exam Respiratory Exam: Clear to Ausculation Bilateral, NORMAL BREATHING PATTERN. absent: Respiratory Distress - Cardiovascular Exam Cardiovascular Exam: +S1, +S2 - GI/Abdominal Exam GI & Abdominal Exam: Soft, Normal Bowel Sounds. absent: Guarding, Tenderness, Rebound - Extremities Exam Extremities Exam: Normal Capillary Refill. absent: Calf Tenderness, Pedal Edema - Neurological Exam Neurological Exam: Alert, Awake, Oriented x3 - Skin Skin Exam: Dry, Warm Assessment and Plan - Assessment and Plan (Free Text) Assessment: Assessment: Abdominal pain w/ N/V Small Bowel Obstruction, ct scan 2.8 cm Smalll bowel distention H/O multiple abdominal surgery H/O Atrial Fibrillation, s/p cardioversion Hypothyroidsim Osteoporosis Plan: NGT to LCS monitor I&O NPO, continue IVF for hydration continue PPI monitor electrolytes Pain mgt surgery on board Seen and discussed w/ Dr. Fields.
[2018-03-30] MEDS ORDERED: Simethicone 80 mg Chewtab PO ONE (13:28)
--- NOTE | 2018-03-30 14:10 | RAD ---
Date of service: 03/30/2018 HISTORY: FU SBO COMPARISON: CT 03/29/2018 FINDINGS: BOWEL: Nasogastric tube in satisfactory position. Mildly dilated loops of small bowel in the mid abdomen. The pattern is similar to the CT soil conservation technician film BONES: Normal. OTHER FINDINGS: None. IMPRESSION: No significant change in partial small bowel obstruction. Nasogastric tube in satisfactory position
[2018-03-30 17:05] LABS: INR 1.12; PARTIAL THROMBOPLASTIN TIME 25.6 Seconds (25.1-36.5); PROTHROMBIN TIME 12.8 SECONDS (9.4-12.5)
[2018-03-31] MEDS: Levothyroxine 100 mcg (0.1 mg) Inj IVP SCH (06:11)
[2018-03-31 07:24] LABS: BASO # 0.03 K/mm3 (0.0-2.0); BASO % 0.3 % (0.0-3.0); EOS # 0.1 (0.0-0.7); EOS % 0.6 % (1.5-5.0); GRAN # 7.88 (1.4-6.5); GRAN % 73.1 % (50.0-68.0); HEMOGLOBIN 12.4 g/dL (12.0-16.0); LYMPH # 1.3 (1.2-3.4); LYMPH % 12.2 % (22.0-35.0); MEAN CELL VOLUME 88.5 fl (80.0-105.0); MEAN CORPUSCULAR HEMOGLOBIN 29.6 pg (25.0-35.0); MEAN CORPUSCULAR HGB CONC 33.4 g/dl (31.0-37.0); MEAN PLATELET VOLUME 11.4 fl (7.0-11.0); MONO # 1.5 (0.1-0.6); MONO % 13.8 % (1.0-6.0); RBC 4.19 10^6/uL (3.5-6.1); RED CELL DISTRIBUTION WIDTH 13.5 % (11.5-14.5); WHITE BLOOD COUNT 10.8 10^3/ul (4.5-11.0)
[2018-03-31 08:01] LABS: ALB/GLOB RATIO 1.2 (1.1-1.8); ALBUMIN 3.1 g/dL (3.0-4.8); ALT/SGPT 26 U/L (7-56); AST/SGOT 24 U/L (14-36); BLOOD UREA NITROGEN 13 mg/dL (7-21); CALCIUM 8.7 mg/dL (8.4-10.5); GFR NON-AFRICAN AMERICAN > 60
--- NOTE | 2018-03-31 09:33 | CP.PCM.PN ---
<Yong Etienne - Last Filed: 03/31/18 09:33> Subjective - Date & Time of Evaluation Date of Evaluation: 03/31/18 Time of Evaluation: 09:31 - Subjective Subjective: Patient seen and examined at bedside. Patient with abdominal pain at this time. Patient denies passing gas at this time. Denies chest pain, shortness of breath , nausea, vomiting, diarrhea, vomiting. Objective - Vital Signs/Intake and Output Vital Signs (last 24 hours): Temp Pulse Resp BP Pulse Ox 98.4 F 89 18 135/83 98 03/31/18 06:00 03/31/18 06:00 03/31/18 06:00 03/31/18 06:00 03/31/18 06:00 Intake and Output: 03/31/18 03/31/18 06:59 18:59 Intake Total 0 Output Total 300 Balance -300 - Medications Medications: Current Medications Lactated Ringer's (Lactated Ringer's) 1,000 mls @ 100 mls/hr IV .Q10H [facility] Last Admin: 03/30/18 01:09 Dose: 100 mls/hr Levothyroxine Sodium (Synthroid) 88 mcg IVP DAILY [facility] Last Admin: 03/31/18 06:11 Dose: 88 mcg Morphine Sulfate (Morphine) 2 mg IVP Q4H PRN PRN Reason: Pain, severe (8-10) Last Admin: 03/29/18 17:34 Dose: 2 mg Ondansetron HCl (Zofran Inj) 4 mg IVP Q6H PRN PRN Reason: Nausea/Vomiting Last Admin: 03/29/18 15:57 Dose: 4 mg Pantoprazole Sodium (Protonix Inj) 40 mg IVP DAILY [facility] Last Admin: 03/30/18 09:15 Dose: 40 mg - Labs Labs: 03/31/18 06:30 03/31/18 06:30 PT 12.8 SECONDS (9.4-12.5) H 03/30/18 16:43 INR 1.12 03/30/18 16:43 APTT 25.6 Seconds (25.1-36.5) 03/30/18 16:43 - Constitutional Appears: Non-toxic, No Acute Distress - Head Exam Head Exam: ATRAUMATIC, NORMAL INSPECTION, NORMOCEPHALIC - ENT Exam ENT Exam: Mucous Membranes Dry Additional comments: NGT in place - Respiratory Exam Respiratory Exam: Clear to Ausculation Bilateral, NORMAL BREATHING PATTERN - Cardiovascular Exam Cardiovascular Exam: RRR, +S1, +S2 - GI/Abdominal Exam GI & Abdominal Exam: Soft, Hyperactive Bowel Sounds. absent: Distended, Guarding, Tenderness - Extremities Exam Extremities Exam: Normal Inspection. absent: Calf Tenderness, Pedal Edema - Neurological Exam Neurological Exam: Alert, Awake, CN II-XII Intact, Oriented x3 - Psychiatric Exam Psychiatric exam: Normal Affect, Normal Mood - Skin Skin Exam: Intact, Normal Color Assessment and Plan - Assessment and Plan (Free Text) Plan: 1. Small bowel obstruction 2. Hypothyroidism Patient with no nausea or vomiting overnight. Patient currently with NGT and no abdominal pain. NGT adjusted overnight as per surgical team. No plans for surgical intervention at this time, will continue with conservative management and bowel rest. Continue current pain control. Will continue with current medical regimen and monitor closely. Jaimie, PGY-3 <Neema Roman - Last Filed: 03/31/18 12:50> Objective - Vital Signs/Intake and Output Vital Signs (last 24 hours): Temp Pulse Resp BP Pulse Ox 98.4 F 89 18 135/83 98 03/31/18 06:00 03/31/18 06:00 03/31/18 06:00 03/31/18 06:00 03/31/18 06:00 Intake and Output: 03/31/18 03/31/18 06:59 18:59 Intake Total 0 Output Total 300 Balance -300 - Medications Medications: Current Medications Lactated Ringer's (Lactated Ringer's) 1,000 mls @ 100 mls/hr IV .Q10H [facility] Last Admin: 03/30/18 01:09 Dose: 100 mls/hr Levothyroxine Sodium (Synthroid) 88 mcg IVP DAILY [facility] Last Admin: 03/31/18 06:11 Dose: 88 mcg Morphine Sulfate (Morphine) 2 mg IVP Q4H PRN PRN Reason: Pain, severe (8-10) Last Admin: 03/29/18 17:34 Dose: 2 mg Ondansetron HCl (Zofran Inj) 4 mg IVP Q6H PRN PRN Reason: Nausea/Vomiting Last Admin: 03/29/18 15:57 Dose: 4 mg Pantoprazole Sodium (Protonix Inj) 40 mg IVP DAILY [facility] Last Admin: 03/31/18 09:56 Dose: 40 mg - Labs Labs: 03/31/18 06:30 03/31/18 06:30 PT 12.8 SECONDS (9.4-12.5) H 03/30/18 16:43 INR 1.12 03/30/18 16:43 APTT 25.6 Seconds (25.1-36.5) 03/30/18 16:43 Assessment and Plan - Assessment and Plan (Free Text) Assessment: PT SEEN AND EXAMINED D/W RESIDENT , PT GOING FOR LAPAROTOMY WILL F/UP LABS IN AM
--- NOTE | 2018-03-31 13:36 | RAD ---
Date of service: 03/31/2018 HISTORY: assess for changes in SBO COMPARISON: No prior. FINDINGS: BOWEL: No significant change in pattern of dilated small bowel loop in the left lower quadrant. Nasogastric tube is in satisfactory position BONES: Normal. OTHER FINDINGS: None. IMPRESSION: No significant change in pattern of dilated small bowel loop in the left lower quadrant. Nasogastric tube is in satisfactory position
--- NOTE | 2018-03-31 13:56 | CP.PCM.PN ---
<Aguilar James - Last Filed: 04/01/18 07:27> Subjective - Date & Time of Evaluation Date of Evaluation: 03/31/18 Time of Evaluation: 13:55 - Subjective Subjective: GI Progress Note for Dr. Fields's Service- Willie, PGY2 Patient seen and assessed at bedside. No acute events overnight. Patient denies any N/V overnight but reports that she has not passed flatus or had any BM's since admission. Patient denies any complaints at this time including fevers, chills, chest pain, SOB, abdominal pain, N/V/D/C, hematochezia, melena, changes in urine output or any skin changes. Objective - Vital Signs/Intake and Output Vital Signs (last 24 hours): Temp Pulse Resp BP Pulse Ox 98.4 F 89 18 135/83 98 03/31/18 06:00 03/31/18 06:00 03/31/18 06:00 03/31/18 06:00 03/31/18 06:00 Intake and Output: 03/31/18 03/31/18 06:59 18:59 Intake Total 0 Output Total 300 Balance -300 - Medications Medications: Current Medications Lactated Ringer's (Lactated Ringer's) 1,000 mls @ 100 mls/hr IV .Q10H [facility] Last Admin: 03/30/18 01:09 Dose: 100 mls/hr Levothyroxine Sodium (Synthroid) 88 mcg IVP DAILY [facility] Last Admin: 03/31/18 06:11 Dose: 88 mcg Morphine Sulfate (Morphine) 2 mg IVP Q4H PRN PRN Reason: Pain, severe (8-10) Last Admin: 03/29/18 17:34 Dose: 2 mg Ondansetron HCl (Zofran Inj) 4 mg IVP Q6H PRN PRN Reason: Nausea/Vomiting Last Admin: 03/29/18 15:57 Dose: 4 mg Pantoprazole Sodium (Protonix Inj) 40 mg IVP DAILY [facility] Last Admin: 03/31/18 09:56 Dose: 40 mg - Labs Labs: 03/31/18 06:30 03/31/18 06:30 PT 12.8 SECONDS (9.4-12.5) H 03/30/18 16:43 INR 1.12 03/30/18 16:43 APTT 25.6 Seconds (25.1-36.5) 03/30/18 16:43 - Constitutional Appears: Non-toxic, No Acute Distress - Head Exam Head Exam: ATRAUMATIC, NORMOCEPHALIC - Eye Exam Eye Exam: EOMI, Normal appearance - ENT Exam ENT Exam: Mucous Membranes Moist - Neck Exam Neck Exam: Full ROM - Respiratory Exam Respiratory Exam: Clear to Ausculation Bilateral, NORMAL BREATHING PATTERN. absent: Accessory Muscle Use, Chest Wall Tenderness, Decreased Breath Sounds, Prolonged Expiratory Phase, Rales, Rhonchi, Wheezes, Respiratory Distress, Stridor - Cardiovascular Exam Cardiovascular Exam: REGULAR RHYTHM, RRR, +S1, +S2. absent: Bradycardia, Tachycardia, Clicks, Diastolic murmur, Gallop, Irregular Rhythm, JVD, Rubs, +S4 , Murmur - GI/Abdominal Exam GI & Abdominal Exam: Distended (Minimal distention increase compared to previous exam), Soft, Hypoactive Bowel Sounds. absent: Bruit, Firm, Guarding, Rigid, Tenderness, Diminished Bowel Sounds, Hernia, Hyperactive Bowel Sounds, Mass, Normal Bowel Sounds - Extremities Exam Extremities Exam: absent: Calf Tenderness, Joint Swelling, Pedal Edema, Tenderness - Neurological Exam Neurological Exam: Alert, Awake, Oriented x3 - Psychiatric Exam Psychiatric exam: Normal Affect, Normal Mood - Skin Skin Exam: Dry, Intact, Normal Color, Warm Assessment and Plan - Assessment and Plan (Free Text) Assessment: 68 year old female with a past medical history significant for Hypothyroidism, Atrial Fibrillation s/p cardioversion, Osteoporosis and history of multiple intra-abdominal surgeries who presented to the [facility] with a chief complaint of abdominal pain with associated nausea and multiple episodes of NBNB vomiting. Patient was found to have a distal SBO on CT Abdomen/Pelvis in ED. Surgery and GI were consulted. Patient to go for Laparotomy today (03/31). Plan: -Patient to go for Laparotomy today (03/31) at 1630 -Currently NGT to LCS -Continue Morphine for pain management -Monitor I&O's and electrolytes -NPO Diet -Continue PPI -Surgery consulted, all recommendations appreciated Patient seen and case discussed with attending, Dr. Fields. <Conchis Fields V - Last Filed: 04/01/18 23:54> Objective - Vital Signs/Intake and Output Vital Signs (last 24 hours): Temp Pulse Resp BP Pulse Ox 98.1 F 86 18 136/71 99 04/01/18 21:12 04/01/18 21:12 04/01/18 21:12 04/01/18 21:12 04/01/18 21:12 Intake and Output: 04/01/18 04/02/18 18:59 06:59 Intake Total 300 420 Balance 300 420 - Medications Medications: Current Medications Lactated Ringer's (Lactated Ringer's) 1,000 mls @ 100 mls/hr IV .Q10H [facility] Last Admin: 04/01/18 21:10 Dose: 100 mls/hr Levothyroxine Sodium (Synthroid) 88 mcg IVP DAILY [facility] Last Admin: 04/01/18 11:40 Dose: 88 mcg Metoclopramide HCl (Reglan) 10 mg IV ONCE PRN PRN Reason: Nausea/Vomiting Morphine Sulfate (Morphine) 2 mg IVP Q4H PRN PRN Reason: Pain, severe (8-10) Last Admin: 03/29/18 17:34 Dose: 2 mg Ondansetron HCl (Zofran Inj) 4 mg IVP Q6H PRN PRN Reason: Nausea/Vomiting Last Admin: 03/29/18 15:57 Dose: 4 mg Pantoprazole Sodium (Protonix Inj) 40 mg IVP DAILY [facility] Last Admin: 04/01/18 11:39 Dose: 40 mg - Labs Labs: 04/01/18 07:30 04/01/18 07:30 PT 12.8 SECONDS (9.4-12.5) H 03/30/18 16:43 INR 1.12 03/30/18 16:43 APTT 25.6 Seconds (25.1-36.5) 03/30/18 16:43 Attending/Attestation - Attestation I have personally seen and examined this patient.: Yes I have fully participated in the care of the patient.: Yes I have reviewed all pertinent clinical information, including history, physical exam and plan: Yes
--- NOTE | 2018-03-31 20:21 | CP.PCM.PCO ---
Physician Communication Note - Physician Communication Note Physician Communication Note: Pt seen and examined, now passing gas, abdomen soft, possible or tomorrow
[2018-03-31] MEDS: Lactated Ringer's 1,000 ML IV SCH (21:01)
[2018-04-01] MEDS: Lactated Ringer's 1,000 ML IV SCH ×3 (01:38→21:10)
[2018-04-01] MEDS ORDERED: Lidocaine PF 2% (5 ml) Inj (For Cardiac Arrhy) ONE (08:10)
[2018-04-01] MEDS ORDERED: Midazolam 2 MG/2 ML VIAL ONE (08:10)
[2018-04-01] MEDS ORDERED: Propofol 10 mg/ml Inj (20 ML) ONE (08:10)
[2018-04-01] MEDS ORDERED: Rocuronium 10 mg/ml (5 ml) ONE (08:11)
[2018-04-01] MEDS ORDERED: Succinylcholine 200 mg/10 ml Inj IV ONE (08:11)
[2018-04-01] MEDS ORDERED: metroNIDAZOLE IV 500 mg/100 ml 500 MG/100 ML BAG ONE (08:12)
[2018-04-01] MEDS ORDERED: Bupivacaine 0.5% Inj(30mL) ONE (08:12)
[2018-04-01] MEDS ORDERED: Ciprofloxacin 400mg/200ml D5W 400 MG/200 ML BAG IVPB ONE (08:13)
[2018-04-01 08:14] LABS: BASO # 0.02 K/mm3 (0.0-2.0); BASO % 0.2 % (0.0-3.0); EOS # 0.2 (0.0-0.7); EOS % 1.4 % (1.5-5.0); GRAN # 8.89 (1.4-6.5); GRAN % 72.1 % (50.0-68.0); HEMOGLOBIN 13.4 g/dL (12.0-16.0); LYMPH # 1.6 (1.2-3.4); LYMPH % 12.8 % (22.0-35.0); MEAN CORPUSCULAR HGB CONC 33.8 g/dl (31.0-37.0); MEAN PLATELET VOLUME 11.5 fl (7.0-11.0); MONO # 1.7 (0.1-0.6); MONO % 13.5 % (1.0-6.0); RBC 4.46 10^6/uL (3.5-6.1); RED CELL DISTRIBUTION WIDTH 13.1 % (11.5-14.5); WHITE BLOOD COUNT 12.3 10^3/ul (4.5-11.0)
[2018-04-01] MEDS ORDERED: ePHEDrine 50 mg/ml Inj ONE (08:28)
[2018-04-01 08:43] LABS: ALB/GLOB RATIO 1.2 (1.1-1.8); ALBUMIN 3.6 g/dL (3.0-4.8); ALT/SGPT 20 U/L (7-56); AST/SGOT 24 U/L (14-36); BLOOD UREA NITROGEN 14 mg/dL (7-21); CALCIUM 9.1 mg/dL (8.4-10.5); GFR NON-AFRICAN AMERICAN > 60
[2018-04-01] MEDS ORDERED: Glycopyrrolate 0.2 mg/ml (2ml vial) ONE (09:51)
--- NOTE | 2018-04-01 10:01 | PCM.SURG1 ---
Surgeon's Initial Post Op Note - Surgeon's Notes Surgeon: Dr. Archer Medical Assistant Internal Medicine: Dr. Ford PGY-2, Dr. Nielson PGY-2, Abril Cottrell MS4 Type of Anesthesia: General Endo Anesthesia Administered By: Dr. Byers Pre-Operative Diagnosis: Small Bowel Obstruction Operative Findings: See operative report Post-Operative Diagnosis: Same Operation Performed: Diagnostic Laparoscopy with extensive Lysis of adhesions Specimen/Specimens Removed: none Estimated Blood Loss: EBL {In ML}: 5 Blood Products Given: N/A Post-Op Condition: Good Date of Surgery/Procedure: 04/01/18 Time of Surgery/Procedure: 10:01
--- NOTE | 2018-04-01 10:01 | RAD ---
Date of service: 04/01/2018 HISTORY: sbo COMPARISON: 03/31/2018 FINDINGS: BOWEL: There is persistent dilatation of a small bowel loop in the left lower quadrant. There is some thickening of the mural folds. Findings are consistent with partial small bowel obstruction. Nasogastric tube in satisfactory position BONES: Normal. OTHER FINDINGS: None. IMPRESSION: There is persistent dilatation of a small bowel loop in the left lower quadrant. There is some thickening of the mural folds. Findings are consistent with partial small bowel obstruction. Nasogastric tube in satisfactory position
[2018-04-01] MEDS ORDERED: HYDROmorphone 0.5 mg/0.5 ml ISec IVP PRN (10:13)
[2018-04-01] MEDS ORDERED: Lactated Ringer's 1,000 ML IV SCH (10:15)
[2018-04-01] MEDS: Levothyroxine 100 mcg (0.1 mg) Inj IVP SCH (11:40)
--- NOTE | 2018-04-01 11:57 | CP.PCM.PN ---
<Yong Etienne - Last Filed: 04/01/18 11:54> Subjective - Date & Time of Evaluation Date of Evaluation: 04/01/18 Time of Evaluation: 11:54 - Subjective Subjective: Patient seen and examined at bedside. Patient s/p laparatomy. Patient resting comfortably in bed. Objective - Vital Signs/Intake and Output Vital Signs (last 24 hours): Temp Pulse Resp BP Pulse Ox 97.6 F 77 10 L 139/77 97 04/01/18 11:10 04/01/18 11:10 04/01/18 11:10 04/01/18 11:10 04/01/18 11:10 Intake and Output: 04/01/18 04/01/18 06:59 18:59 Intake Total 1200 300 Output Total 500 Balance 700 300 - Medications Medications: Current Medications Hydromorphone HCl (Dilaudid) 0.5 mg IVP Q15M PRN PRN Reason: Pain, moderate (4-7) Stop: 04/01/18 12:14 Lactated Ringer's (Lactated Ringer's) 1,000 mls @ 100 mls/hr IV .Q10H [facility] Last Admin: 04/01/18 11:36 Dose: 100 mls/hr Lactated Ringer's (Lactated Ringer's) 1,000 mls @ 75 mls/hr IV .[id number] [facility] Stop: 04/01/18 12:16 Levothyroxine Sodium (Synthroid) 88 mcg IVP DAILY [facility] Last Admin: 04/01/18 11:40 Dose: 88 mcg Metoclopramide HCl (Reglan) 10 mg IV ONCE PRN PRN Reason: Nausea/Vomiting Morphine Sulfate (Morphine) 2 mg IVP Q4H PRN PRN Reason: Pain, severe (8-10) Last Admin: 03/29/18 17:34 Dose: 2 mg Ondansetron HCl (Zofran Inj) 4 mg IVP Q6H PRN PRN Reason: Nausea/Vomiting Last Admin: 03/29/18 15:57 Dose: 4 mg Pantoprazole Sodium (Protonix Inj) 40 mg IVP DAILY [facility] Last Admin: 04/01/18 11:39 Dose: 40 mg - Labs Labs: 04/01/18 07:30 04/01/18 07:30 PT 12.8 SECONDS (9.4-12.5) H 03/30/18 16:43 INR 1.12 03/30/18 16:43 APTT 25.6 Seconds (25.1-36.5) 03/30/18 16:43 - Constitutional Appears: Non-toxic, No Acute Distress - Head Exam Head Exam: ATRAUMATIC, NORMAL INSPECTION, NORMOCEPHALIC - ENT Exam Additional comments: NGT in place - Respiratory Exam Respiratory Exam: Clear to Ausculation Bilateral, NORMAL BREATHING PATTERN - Cardiovascular Exam Cardiovascular Exam: RRR, +S1, +S2 - GI/Abdominal Exam GI & Abdominal Exam: Tenderness, Normal Bowel Sounds Additional comments: Bandaged - Neurological Exam Neurological Exam: Alert, Awake, CN II-XII Intact, Oriented x3 - Psychiatric Exam Psychiatric exam: Normal Affect, Normal Mood - Skin Skin Exam: Intact, Normal Color Assessment and Plan - Assessment and Plan (Free Text) Plan: 1. Small bowel obstruction 2. Hypothyroidism Patient underwent laparatomy this morning to remove adhesions. Patient successfully completed procedure with no complications. Patient will have NGT removed later by surgical team. Continue pain management. Will continue with current medical regimen and monitor closely. Jaimie, PGY-3 <Neema Roman - Last Filed: 04/01/18 22:25> Objective - Vital Signs/Intake and Output Vital Signs (last 24 hours): Temp Pulse Resp BP Pulse Ox 98.1 F 86 18 136/71 99 04/01/18 21:12 04/01/18 21:12 04/01/18 21:12 04/01/18 21:12 04/01/18 21:12 Intake and Output: 04/01/18 04/02/18 18:59 06:59 Intake Total 300 420 Balance 300 420 - Medications Medications: Current Medications Lactated Ringer's (Lactated Ringer's) 1,000 mls @ 100 mls/hr IV .Q10H [facility] Last Admin: 04/01/18 21:10 Dose: 100 mls/hr Levothyroxine Sodium (Synthroid) 88 mcg IVP DAILY [facility] Last Admin: 04/01/18 11:40 Dose: 88 mcg Metoclopramide HCl (Reglan) 10 mg IV ONCE PRN PRN Reason: Nausea/Vomiting Morphine Sulfate (Morphine) 2 mg IVP Q4H PRN PRN Reason: Pain, severe (8-10) Last Admin: 03/29/18 17:34 Dose: 2 mg Ondansetron HCl (Zofran Inj) 4 mg IVP Q6H PRN PRN Reason: Nausea/Vomiting Last Admin: 03/29/18 15:57 Dose: 4 mg Pantoprazole Sodium (Protonix Inj) 40 mg IVP DAILY [facility] Last Admin: 04/01/18 11:39 Dose: 40 mg - Labs Labs: 04/01/18 07:30 04/01/18 07:30 PT 12.8 SECONDS (9.4-12.5) H 03/30/18 16:43 INR 1.12 03/30/18 16:43 APTT 25.6 Seconds (25.1-36.5) 03/30/18 16:43 Assessment and Plan - Assessment and Plan (Free Text) Plan: agreed with residents assesment and plan will f/up CMP IN am
--- NOTE | 2018-04-01 20:16 | OP ---
Copied To: Andrea Archer MD Attending MD: Andrea Archer MD PROCEDURE DATE: 04/01/2018 PREOPERATIVE DIAGNOSIS: Small bowel obstruction. POSTOPERATIVE DIAGNOSES: 1. Internal herniation of the small bowel. 2. Intraabdominal adhesions. SURGEON: Andrea Archer MD SHEET TAILER: Ernesto Nielson DO and Leila Ford DO. ANESTHESIOLOGIST: Dr. Byers. TYPE OF ANESTHESIA: General endotracheal anesthesia. ESTIMATED BLOOD LOSS: Minimal. SPECIMENS: None. INDICATIONS: Patient is a 41-rve[age]-lce female with a history of abdominal pain for the past few days, came into the hospital and was noted to have partial small bowel obstruction. Patient was treated to have decompression with the NG tube; however, did not improve significantly and therefore decision was made to proceed to the operating room for exploratory laparoscopy. DESCRIPTION OF PROCEDURE: The patient was brought to the operating room and placed on the operating table in a supine position. The patient was connected to the EKG, blood pressure and pulse oximetry monitors. The patient then underwent general endotracheal anesthesia, was prepped and draped in the usual sterile fashion. First, a standard time-out procedure took place when everybody in the room agreed to the patient's identity, diagnoses and procedures to be performed. The operative and postoperative plan was discussed with the OR team. Using two towel clips in the anterior abdominal wall it was elevated and Veress needle was inserted through a small incision superior to the umbilicus. Once pneumoperitoneum was obtained, a 12-mm trocar was inserted through that incision, and carefully evaluated from abdominal cavity, revealed the presence of descended small bowel loops as well as some loops which were collapsed. We then placed second 5 mm trocar in the left upper quadrant and another 5 mm trocar in the left lower quadrant. We then proceeded with a careful running of the small bowel using bowel clamps. It appeared that there was a hang up of omentum all the way down into the pelvis that created an internal herniation. We then carefully pulled out the small bowel while patient was in Trendelenburg and cleared that area to the point where we have noted the omental bands holding the small bowel and underneath it. Those were taken down with harmonic scalpel. The remaining portion of the adhesions were taken down throughout the abdomen using harmonic scalpel in order to clear any possible point of herniation. Once all this tedious dissection was done for about an hour and five minutes, we were able to clear up the entire bowel and we were able to run the small bowel from ileocecal valve all the way up to the ligament of Treitz and noted no abnormalities. There is a small tiny area of near the obstruction point; however there was no bleeding and the muscle layer was intact. We then suctioned out all the fluids from the abdominal cavity, reexamined the omentum and there was no bleeding noted. The port sites were also checked and there was no bleeding noted. We then proceeded with release of pneumoperitoneum, removal of the trocar and closure of the wounds using 0 Vicryl for the fascia, 3-0 Vicryl for the subcutaneous tissue and 4-0 Monocryl for skin. A sterile Dermabond dressing was applied to the wound. The patient tolerated the procedure well and there were no complications. The patient was awakened and transferred to the recovery room for further observation. Andrea Archer MD
[2018-04-02] MEDS: Lactated Ringer's 1,000 ML IV SCH (05:41)
[2018-04-02 08:03] LABS: BASO # 0.01 K/mm3 (0.0-2.0); BASO % 0.1 % (0.0-3.0); EOS # 0.1 (0.0-0.7); EOS % 1.2 % (1.5-5.0); GRAN # 8.42 (1.4-6.5); GRAN % 75.8 % (50.0-68.0); HEMOGLOBIN 13.7 g/dL (12.0-16.0); LYMPH # 1.2 (1.2-3.4); MEAN CELL VOLUME 87.9 fl (80.0-105.0); MEAN CORPUSCULAR HEMOGLOBIN 30.2 pg (25.0-35.0); MEAN CORPUSCULAR HGB CONC 34.3 g/dl (31.0-37.0); MEAN PLATELET VOLUME 11.6 fl (7.0-11.0); MONO # 1.3 (0.1-0.6); MONO % 11.9 % (1.0-6.0); RBC 4.54 10^6/uL (3.5-6.1); RED CELL DISTRIBUTION WIDTH 12.9 % (11.5-14.5); WHITE BLOOD COUNT 11.1 10^3/ul (4.5-11.0)
--- NOTE | 2018-04-02 08:06 | CP.PCM.PN ---
Subjective - Date & Time of Evaluation Date of Evaluation: 04/02/18 Time of Evaluation: 07:10 - Subjective Subjective: General Surgery Note for Dr. Archer Patient seen and examined at bedside. No acute event overnight. She is s/p diagnostic laparoscopy extensive, adhesiolysis, removal of obstructing band POD# 1. NGT was removed yesterday after procedure. Patient states that she is tolerating clear liquids. She admits to passing gas yesterday but nothing after 1400. She reports pain at surgical sites. Denies fever/chills, nausea/vomiting, diarrhea. Patient is a little anxious and concerned about not passing gas and feeling of abdominal fullness. Objective - Vital Signs/Intake and Output Vital Signs (last 24 hours): Temp Pulse Resp BP Pulse Ox 98.3 F 98 H 18 144/78 97 04/02/18 06:00 04/02/18 06:00 04/02/18 06:00 04/02/18 06:00 04/02/18 06:00 Intake and Output: 04/02/18 04/02/18 06:59 18:59 Intake Total 1620 Balance 1620 - Medications Medications: Current Medications Lactated Ringer's (Lactated Ringer's) 1,000 mls @ 100 mls/hr IV .Q10H [facility] Last Admin: 04/02/18 05:41 Dose: 100 mls/hr Levothyroxine Sodium (Synthroid) 88 mcg IVP DAILY [facility] Last Admin: 04/01/18 11:40 Dose: 88 mcg Metoclopramide HCl (Reglan) 10 mg IV ONCE PRN PRN Reason: Nausea/Vomiting Morphine Sulfate (Morphine) 2 mg IVP Q4H PRN PRN Reason: Pain, severe (8-10) Last Admin: 03/29/18 17:34 Dose: 2 mg Ondansetron HCl (Zofran Inj) 4 mg IVP Q6H PRN PRN Reason: Nausea/Vomiting Last Admin: 03/29/18 15:57 Dose: 4 mg Pantoprazole Sodium (Protonix Inj) 40 mg IVP DAILY [facility] Last Admin: 04/01/18 11:39 Dose: 40 mg - Labs Labs: 04/01/18 07:30 04/01/18 07:30 PT 12.8 SECONDS (9.4-12.5) H 03/30/18 16:43 INR 1.12 03/30/18 16:43 APTT 25.6 Seconds (25.1-36.5) 03/30/18 16:43 - Constitutional Appears: Well, Non-toxic, No Acute Distress - Head Exam Head Exam: ATRAUMATIC, NORMOCEPHALIC - Eye Exam Eye Exam: EOMI, Normal appearance Pupil Exam: PERRL - ENT Exam ENT Exam: Mucous Membranes Moist - Respiratory Exam Respiratory Exam: NORMAL BREATHING PATTERN - Cardiovascular Exam Cardiovascular Exam: REGULAR RHYTHM - GI/Abdominal Exam GI & Abdominal Exam: Soft, Normal Bowel Sounds. absent: Distended, Firm, Guarding, Rigid, Tenderness, Rebound - Extremities Exam Extremities Exam: Normal Capillary Refill - Neurological Exam Neurological Exam: Alert, Awake, Oriented x3 - Psychiatric Exam Psychiatric exam: Normal Affect, Normal Mood - Skin Skin Exam: Dry, Intact, Normal Color, Warm Assessment and Plan - Assessment and Plan (Free Text) Assessment: 68 F s/p diagnostic laparoscopy extensive, adhesiolysis, removal of obstructing band POD#1 Plan: -CLD, ADAT -Continue IV fluids -Analgesics/Anti-emetics PRN -Monitor for bowel function -Xanax once for anxiety if patient wants -OOB to chair/Encourage Ambulation/IS -PT -Further recommendations as per Dr. Gianni Nielson PGY2
[2018-04-02 08:23] LABS: ALB/GLOB RATIO 1.2 (1.1-1.8); ALBUMIN 2.9 g/dL (3.0-4.8); ALT/SGPT 24 U/L (7-56); AST/SGOT 20 U/L (14-36); BLOOD UREA NITROGEN 8 mg/dL (7-21); CALCIUM 8.7 mg/dL (8.4-10.5); GFR NON-AFRICAN AMERICAN > 60
--- NOTE | 2018-04-02 09:30 | CP.PCM.PN ---
<Jason Leger - Last Filed: 04/02/18 09:33> Subjective - Date & Time of Evaluation Date of Evaluation: 04/02/18 Time of Evaluation: 09:26 - Subjective Subjective: GI Fellow pgy4, progress note. Patient sitting up and has been walking after surgery yesterday. She is feeling okay, passing some gas. No BMs today. She is tolerating a clear liquid diet. No nausea or vomiting or significant abdominal pain, only mild distension. 5pt ROS completed and negative except for above. Objective - Vital Signs/Intake and Output Vital Signs (last 24 hours): Temp Pulse Resp BP Pulse Ox 98.3 F 98 H 18 144/78 97 04/02/18 06:00 04/02/18 06:00 04/02/18 06:00 04/02/18 06:00 04/02/18 06:00 Intake and Output: 04/02/18 04/02/18 06:59 18:59 Intake Total 1620 Balance 1620 - Medications Medications: Current Medications Lactated Ringer's (Lactated Ringer's) 1,000 mls @ 100 mls/hr IV .Q10H [facility] Last Admin: 04/02/18 05:41 Dose: 100 mls/hr Levothyroxine Sodium (Synthroid) 88 mcg IVP DAILY [facility] Last Admin: 04/01/18 11:40 Dose: 88 mcg Metoclopramide HCl (Reglan) 10 mg IV ONCE PRN PRN Reason: Nausea/Vomiting Morphine Sulfate (Morphine) 2 mg IVP Q4H PRN PRN Reason: Pain, severe (8-10) Last Admin: 03/29/18 17:34 Dose: 2 mg Ondansetron HCl (Zofran Inj) 4 mg IVP Q6H PRN PRN Reason: Nausea/Vomiting Last Admin: 03/29/18 15:57 Dose: 4 mg Pantoprazole Sodium (Protonix Inj) 40 mg IVP DAILY [facility] Last Admin: 04/01/18 11:39 Dose: 40 mg Simethicone (Mylicon Chew Tab) 80 mg PO Q6 PRN PRN Reason: GI distress - Labs Labs: 04/02/18 07:00 04/02/18 07:00 PT 12.8 SECONDS (9.4-12.5) H 08/29/18 16:43 INR 1.12 03/30/18 16:43 APTT 25.6 Seconds (25.1-36.5) 03/30/18 16:43 - Constitutional Appears: Well, No Acute Distress - Head Exam Head Exam: NORMAL INSPECTION - Eye Exam Eye Exam: Normal appearance - ENT Exam ENT Exam: Mucous Membranes Moist - GI/Abdominal Exam GI & Abdominal Exam: Distended, Soft, Hypoactive Bowel Sounds. absent: Tenderness - Extremities Exam Extremities Exam: Normal Inspection - Neurological Exam Neurological Exam: Alert, Awake, Normal Gait, Oriented x3 - Psychiatric Exam Psychiatric exam: Normal Affect, Normal Mood - Skin Skin Exam: Dry, Normal Color Assessment and Plan - Assessment and Plan (Free Text) Assessment: 68F with history of gynecologic surgery presenting with SBO #SBO Plan: -s/p lysis of adhesions 04/02/18 -Continue supportive care -Advance diet per surgery. -We will continue to follow with you. -No planned endoscopic procedures. <Conchis Fields V - Last Filed: 04/03/18 00:17> Objective - Vital Signs/Intake and Output Vital Signs (last 24 hours): Temp Pulse Resp BP Pulse Ox 98.4 F 95 H 20 147/83 97 04/02/18 22:00 04/02/18 22:00 04/02/18 22:00 04/02/18 22:00 04/02/18 22:00 Intake and Output: 04/02/18 04/03/18 18:59 06:59 Intake Total 240 Balance 240 - Medications Medications: Current Medications Levothyroxine Sodium (Synthroid) 88 mcg IVP DAILY [facility] Last Admin: 04/02/18 09:36 Dose: 88 mcg Metoclopramide HCl (Reglan) 10 mg IV ONCE PRN PRN Reason: Nausea/Vomiting Morphine Sulfate (Morphine) 2 mg IVP Q4H PRN PRN Reason: Pain, severe (8-10) Last Admin: 03/29/18 17:34 Dose: 2 mg Ondansetron HCl (Zofran Inj) 4 mg IVP Q6H PRN PRN Reason: Nausea/Vomiting Last Admin: 03/29/18 15:57 Dose: 4 mg Pantoprazole Sodium (Protonix Inj) 40 mg IVP DAILY [facility] Last Admin: 04/02/18 09:35 Dose: 40 mg Simethicone (Mylicon Chew Tab) 80 mg PO Q6 PRN PRN Reason: GI distress Last Admin: 04/02/18 21:29 Dose: 80 mg - Labs Labs: 04/02/18 07:00 04/02/18 07:00 PT 12.8 SECONDS (9.4-12.5) H 03/30/18 16:43 INR 1.12 03/30/18 16:43 APTT 25.6 Seconds (25.1-36.5) 03/30/18 16:43 Attending/Attestation - Attestation I have personally seen and examined this patient.: Yes I have fully participated in the care of the patient.: Yes I have reviewed all pertinent clinical information, including history, physical exam and plan: Yes Notes (Text): This is an addendum to GI progress report dictated by the GI Fellow.The patient was seen and examined earlier. Medical records, lab studies, imagings were reviewed. Last 24 hours events reviewed. Agreed with the above treatment plan as outlined in GI Fellow 's notes with the addition of the following status post laparotomy and release of adhesions for small bowel obstruction on clear liquid diet tolerating Slowly advance the diet as per surgery 04/03/18 00:15
[2018-04-02] MEDS: Simethicone 80 mg Chewtab PO PRN ×2 (09:36→21:29)
[2018-04-02] MEDS: Levothyroxine 100 mcg (0.1 mg) Inj IVP SCH (09:36)
--- NOTE | 2018-04-02 22:10 | PN ---
Copied To: Neema Roman MD Attending MD: Neema Roman MD DATE: 04/02/2018 SUBJECTIVE: The patient is 68 years old, seen and examined, sitting in chair. Seems to be comfortable. Did not pass gas yet, but feels some gurgling. Nasogastric tube is removed. Started on liquid diet. PHYSICAL EXAMINATION: VITAL SIGNS: She is afebrile, pulse 90, respirations 18, and blood pressure 144/70. LUNGS: Bilateral good airflow. No rhonchi or crackle. HEART: S1 and S2 audible. ABDOMEN: Soft, bowel sounds are sluggish. NEUROLOGIC: She is awake, alert, oriented, and communicative. LABORATORY EXAM: WBC is 11.1, hemoglobin 13, hematocrit 39, and platelets 153. Chemistry: Sodium 135, potassium 3.6, chloride 99, CO2 of . BUN 8, creatinine 0.6. Blood sugar of 80. ASSESSMENT: 1. Status post laparotomy and lysis. 2. Status post partial small bowel obstruction. 3. Electrolyte imbalance, improved. 4. History of previous chocolate cyst and multiple gynecological surgeries. 5. Hypothyroidism. PLAN: The patient has been started on clear liquid. We will monitor her electrolyte. Analgesic as needed. While she move her bowel, I will advance her diet, possible discharge in a.m. We will follow . Neema Roman MD
[2018-04-03 07:09] LABS: ALB/GLOB RATIO 1.1 (1.1-1.8); ALBUMIN 2.8 g/dL (3.0-4.8); ALT/SGPT 25 U/L (7-56); AST/SGOT 19 U/L (14-36); BLOOD UREA NITROGEN 7 mg/dL (7-21); CALCIUM 8.7 mg/dL (8.4-10.5); GFR NON-AFRICAN AMERICAN > 60
[2018-04-03 07:19] LABS: BASO # 0.02 K/mm3 (0.0-2.0); BASO % 0.2 % (0.0-3.0); EOS # 0.3 (0.0-0.7); EOS % 2.6 % (1.5-5.0); GRAN # 7.62 (1.4-6.5); GRAN % 72.7 % (50.0-68.0); HEMOGLOBIN 12.4 g/dL (12.0-16.0); LYMPH # 0.8 (1.2-3.4); LYMPH % 7.7 % (22.0-35.0); MEAN CELL VOLUME 87.5 fl (80.0-105.0); MEAN CORPUSCULAR HEMOGLOBIN 30.5 pg (25.0-35.0); MEAN CORPUSCULAR HGB CONC 34.8 g/dl (31.0-37.0); MEAN PLATELET VOLUME 11.4 fl (7.0-11.0); MONO # 1.8 (0.1-0.6); MONO % 16.8 % (1.0-6.0); RBC 4.07 10^6/uL (3.5-6.1); RED CELL DISTRIBUTION WIDTH 12.8 % (11.5-14.5); WHITE BLOOD COUNT 10.5 10^3/ul (4.5-11.0)
--- NOTE | 2018-04-03 07:51 | CP.PCM.PN ---
Subjective - Date & Time of Evaluation Date of Evaluation: 04/03/18 Time of Evaluation: 07:48 - Subjective Subjective: General Surgery Dr. Archer Pt seen & examined @bedside. no acute events overnight. pt report OOB, ambulating hallways. denies abd pain, F/C, N/V, D/C. tolerating FLD. (+)Flatus ( -)BM. Objective - Vital Signs/Intake and Output Vital Signs (last 24 hours): Temp Pulse Resp BP Pulse Ox 98.1 F 98 H 20 123/73 97 04/03/18 06:00 04/03/18 06:00 04/03/18 06:00 04/03/18 06:00 04/03/18 06:00 Intake and Output: 04/03/18 04/03/18 06:59 18:59 Intake Total 420 Balance 420 - Medications Medications: Current Medications Levothyroxine Sodium (Synthroid) 88 mcg IVP DAILY [facility] Last Admin: 04/02/18 09:36 Dose: 88 mcg Metoclopramide HCl (Reglan) 10 mg IV ONCE PRN PRN Reason: Nausea/Vomiting Morphine Sulfate (Morphine) 2 mg IVP Q4H PRN PRN Reason: Pain, severe (8-10) Last Admin: 03/29/18 17:34 Dose: 2 mg Ondansetron HCl (Zofran Inj) 4 mg IVP Q6H PRN PRN Reason: Nausea/Vomiting Last Admin: 03/29/18 15:57 Dose: 4 mg Pantoprazole Sodium (Protonix Inj) 40 mg IVP DAILY [facility] Last Admin: 04/02/18 09:35 Dose: 40 mg Simethicone (Mylicon Chew Tab) 80 mg PO Q6 PRN PRN Reason: GI distress Last Admin: 04/02/18 21:29 Dose: 80 mg - Labs Labs: 04/03/18 06:00 04/03/18 06:00 PT 12.8 SECONDS (9.4-12.5) H 03/30/18 16:43 INR 1.12 03/30/18 16:43 APTT 25.6 Seconds (25.1-36.5) 03/30/18 16:43 - Constitutional Appears: Non-toxic, No Acute Distress - Head Exam Head Exam: NORMAL INSPECTION - Eye Exam Eye Exam: Normal appearance - ENT Exam ENT Exam: Mucous Membranes Moist - Respiratory Exam Respiratory Exam: NORMAL BREATHING PATTERN. absent: Accessory Muscle Use, Respiratory Distress - Cardiovascular Exam Cardiovascular Exam: REGULAR RHYTHM. absent: Bradycardia, Tachycardia - GI/Abdominal Exam GI & Abdominal Exam: Soft. absent: Distended, Firm, Guarding, Tenderness, Rebound Additional comments: incisions c/d/i - Extremities Exam Extremities Exam: Normal Inspection - Neurological Exam Neurological Exam: Alert, Awake, Oriented x3 - Psychiatric Exam Psychiatric exam: Normal Affect, Normal Mood - Skin Skin Exam: Dry, Intact, Normal Color, Warm Assessment and Plan - Assessment and Plan (Free Text) Assessment: 68 y/o F POD#2 s/p diagnostic laparoscopy extensive, adhesiolysis, removal of obstructing band Plan: - cont FLD, advance w/ BM as tolerated - d/c IVF - cont pain management - monitor bowel fxn - encourage OOB to chair/Amb/IS use Further recs per Dr. Gianni Hughes DO PGY3
[2018-04-03] MEDS ORDERED: Potassium Chloride 20 mEq ER Tab PO ONE (09:09)
[2018-04-03] MEDS: Levothyroxine 100 mcg (0.1 mg) Inj IVP SCH (09:30)
--- NOTE | 2018-04-03 12:21 | CP.PCM.PN ---
<ClementehildapromiseJason - Last Filed: 04/03/18 12:18> Subjective - Date & Time of Evaluation Date of Evaluation: 04/03/18 Time of Evaluation: 12:18 - Subjective Subjective: GI Fellow PGY4, Patient is much better. No complaints. Passing gas. No BMs. tolerating full liquid diet. No abdominal pain, decreased distension. She is walking a lot. 5pt ROS completed and neg except for above. Objective - Vital Signs/Intake and Output Vital Signs (last 24 hours): Temp Pulse Resp BP Pulse Ox 98.1 F 98 H 20 123/73 97 04/03/18 06:00 04/03/18 06:00 04/03/18 06:00 04/03/18 06:00 04/03/18 06:00 Intake and Output: 04/03/18 04/03/18 06:59 18:59 Intake Total 420 Balance 420 - Medications Medications: Current Medications Docusate Sodium (Colace) 100 mg PO BID [facility] Levothyroxine Sodium (Synthroid) 88 mcg IVP DAILY [facility] Last Admin: 04/03/18 09:30 Dose: 88 mcg Metoclopramide HCl (Reglan) 10 mg IV ONCE PRN PRN Reason: Nausea/Vomiting Morphine Sulfate (Morphine) 2 mg IVP Q4H PRN PRN Reason: Pain, severe (8-10) Last Admin: 03/29/18 17:34 Dose: 2 mg Ondansetron HCl (Zofran Inj) 4 mg IVP Q6H PRN PRN Reason: Nausea/Vomiting Last Admin: 03/29/18 15:57 Dose: 4 mg Pantoprazole Sodium (Protonix Inj) 40 mg IVP DAILY [facility] Last Admin: 04/03/18 09:29 Dose: 40 mg Simethicone (Mylicon Chew Tab) 80 mg PO Q6 PRN PRN Reason: GI distress Last Admin: 04/02/18 21:29 Dose: 80 mg - Labs Labs: 04/03/18 06:00 04/03/18 06:00 PT 12.8 SECONDS (9.4-12.5) H 03/30/18 16:43 INR 1.12 03/30/18 16:43 APTT 25.6 Seconds (25.1-36.5) 03/30/18 16:43 - Constitutional Appears: Well, No Acute Distress - Head Exam Head Exam: NORMAL INSPECTION - Eye Exam Eye Exam: Normal appearance - ENT Exam ENT Exam: Mucous Membranes Moist - Respiratory Exam Respiratory Exam: Clear to Ausculation Bilateral, NORMAL BREATHING PATTERN - Cardiovascular Exam Cardiovascular Exam: REGULAR RHYTHM - GI/Abdominal Exam GI & Abdominal Exam: Soft, Normal Bowel Sounds. absent: Rigid, Tenderness - Extremities Exam Extremities Exam: Normal Inspection - Neurological Exam Neurological Exam: Alert, Awake, Normal Gait, Oriented x3 - Psychiatric Exam Psychiatric exam: Normal Affect, Normal Mood - Skin Skin Exam: Dry, Normal Color Assessment and Plan - Assessment and Plan (Free Text) Assessment: 68F with history of gynecologic surgery presenting with SBO #SBO Plan: -s/p lysis of adhesions 04/02/18 -Continue supportive care -Advance diet per surgery. -We will continue to follow with you. -No planned endoscopic procedures. -Colace PO <Diamond,Kovil V - Last Filed: 04/03/18 21:37> Objective - Vital Signs/Intake and Output Vital Signs (last 24 hours): Temp Pulse Resp BP Pulse Ox 98.2 F 86 20 118/71 98 04/03/18 14:00 04/03/18 14:00 04/03/18 14:00 04/03/18 14:00 04/03/18 14:00 Intake and Output: 04/03/18 04/04/18 18:59 06:59 Output Total 480 Balance -480 - Medications Medications: Current Medications Docusate Sodium (Colace) 100 mg PO BID [facility] Last Admin: 04/03/18 17:44 Dose: 100 mg Levothyroxine Sodium (Synthroid) 88 mcg IVP DAILY [facility] Last Admin: 04/03/18 09:30 Dose: 88 mcg Metoclopramide HCl (Reglan) 10 mg IV ONCE PRN PRN Reason: Nausea/Vomiting Morphine Sulfate (Morphine) 2 mg IVP Q4H PRN PRN Reason: Pain, severe (8-10) Last Admin: 03/29/18 17:34 Dose: 2 mg Ondansetron HCl (Zofran Inj) 4 mg IVP Q6H PRN PRN Reason: Nausea/Vomiting Last Admin: 03/29/18 15:57 Dose: 4 mg Pantoprazole Sodium (Protonix Inj) 40 mg IVP DAILY [facility] Last Admin: 04/03/18 09:29 Dose: 40 mg Simethicone (Mylicon Chew Tab) 80 mg PO Q6 PRN PRN Reason: GI distress Last Admin: 04/02/18 21:29 Dose: 80 mg - Labs Labs: 04/03/18 06:00 04/03/18 06:00 PT 12.8 SECONDS (9.4-12.5) H 03/30/18 16:43 INR 1.12 03/30/18 16:43 APTT 25.6 Seconds (25.1-36.5) 03/30/18 16:43 Attending/Attestation - Attestation I have personally seen and examined this patient.: Yes I have fully participated in the care of the patient.: Yes I have reviewed all pertinent clinical information, including history, physical exam and plan: Yes Notes (Text): This is an addendum to GI progress report dictated by the GI Fellow.The patient was seen and examined earlier. Medical records, lab studies, imagings were reviewed. Last 24 hours events reviewed. Agreed with the above treatment plan as outlined in GI Fellow 's notes with the addition of the following passing flatus Tolerating diet No bowel movements yet at the time ofexamination in the morning Postop follow-up as per surgery 04/03/18 21:35
--- NOTE | 2018-04-03 20:05 | PN ---
Copied To: Neema Roman MD Attending MD: Neema Roman MD DATE: 04/03/2018 SUBJECTIVE: The patient is 68 years old, seen and examined, just came out of shower, feeling a lot better, passed gas, did not have bowel movement, tolerating liquid diet. PHYSICAL EXAMINATION: VITAL SIGNS: She is afebrile, pulse 98, respirations 20, and blood pressure 126/73. LUNGS: Bilateral good airflow. No rhonchi or crackle. HEART: S1 and S2 audible. ABDOMEN: Soft, nontender. No rebound, no guarding. NEUROLOGIC: She is awake, alert, oriented, and communicative. LABORATORY DATA: WBC 10.5, hemoglobin 12.4, hematocrit 35.6, and platelets 180. Chemistry: Sodium 134, potassium 3.4, chloride 99, CO2 of 27, BUN 7, creatinine 0.5, blood sugar of 89. ASSESSMENT: 1. Status post laparotomy and adhesiolysis. 2. Status post partial small bowel obstruction because of adhesions secondary to previous multiple gynecological surgeries 3. Hypothyroidism. PLAN: Her IV fluid has been discontinued. Potassium is supplemented. Analgesic as needed. She is on Protonix and continue on levothyroxine. We will follow up electrolytes in a,m. Discharge plan as per Surgery. Neema Roman MD
[2018-04-04 07:21] LABS: BASO # 0.04 K/mm3 (0.0-2.0); BASO % 0.4 % (0.0-3.0); EOS # 0.5 (0.0-0.7); EOS % 5.1 % (1.5-5.0); GRAN # 6.21 (1.4-6.5); GRAN % 65.9 % (50.0-68.0); HEMOGLOBIN 12.1 g/dL (12.0-16.0); LYMPH # 1.2 (1.2-3.4); LYMPH % 12.7 % (22.0-35.0); MEAN CELL VOLUME 87.7 fl (80.0-105.0); MEAN CORPUSCULAR HEMOGLOBIN 29.7 pg (25.0-35.0); MEAN CORPUSCULAR HGB CONC 33.8 g/dl (31.0-37.0); MEAN PLATELET VOLUME 10.8 fl (7.0-11.0); MONO # 1.5 (0.1-0.6); MONO % 15.9 % (1.0-6.0); RBC 4.08 10^6/uL (3.5-6.1); WHITE BLOOD COUNT 9.4 10^3/ul (4.5-11.0)
[2018-04-04 07:46] LABS: ALB/GLOB RATIO 1.1 (1.1-1.8); ALBUMIN 2.8 g/dL (3.0-4.8); ALT/SGPT 25 U/L (7-56); AST/SGOT 22 U/L (14-36); BLOOD UREA NITROGEN 7 mg/dL (7-21); CALCIUM 8.8 mg/dL (8.4-10.5); GFR NON-AFRICAN AMERICAN > 60
[2018-04-04] MEDS: Levothyroxine 100 mcg (0.1 mg) Inj IVP SCH ×2 (10:11→10:12)
[2018-04-04] MEDS: Simethicone 80 mg Chewtab PO PRN (10:12)
--- NOTE | 2018-04-04 10:12 | CP.PCM.PN ---
Subjective - Date & Time of Evaluation Date of Evaluation: 04/04/18 Time of Evaluation: 07:50 - Subjective Subjective: General surgery progress note for Dr. Archer Patient seen ad examined this AM. No adverse events overnight, patient had a small bowel movement yesterday and admits to passing gas and tolerated CLD yesterday and soft diet for breakfast this AM. Reports only mild pain Objective - Vital Signs/Intake and Output Vital Signs (last 24 hours): Temp Pulse Resp BP Pulse Ox 98.2 F 85 20 135/79 98 04/04/18 07:46 04/04/18 07:46 04/04/18 07:46 04/04/18 07:46 04/04/18 07:46 Intake and Output: 04/04/18 04/04/18 06:59 18:59 Intake Total 420 Output Total 480 Balance -480 420 - Medications Medications: Current Medications Docusate Sodium (Colace) 100 mg PO BID [facility] Last Admin: 04/03/18 17:44 Dose: 100 mg Levothyroxine Sodium (Synthroid) 88 mcg IVP DAILY [facility] Last Admin: 04/03/18 09:30 Dose: 88 mcg Metoclopramide HCl (Reglan) 10 mg IV ONCE PRN PRN Reason: Nausea/Vomiting Ondansetron HCl (Zofran Inj) 4 mg IVP Q6H PRN PRN Reason: Nausea/Vomiting Last Admin: 03/29/18 15:57 Dose: 4 mg Pantoprazole Sodium (Protonix Inj) 40 mg IVP DAILY [facility] Last Admin: 04/03/18 09:29 Dose: 40 mg Simethicone (Mylicon Chew Tab) 80 mg PO Q6 PRN PRN Reason: GI distress Last Admin: 04/02/18 21:29 Dose: 80 mg - Labs Labs: 04/04/18 06:30 04/04/18 06:30 PT 12.8 SECONDS (9.4-12.5) H 03/30/18 16:43 INR 1.12 03/30/18 16:43 APTT 25.6 Seconds (25.1-36.5) 03/30/18 16:43 - Constitutional Appears: Well, Non-toxic, No Acute Distress - Head Exam Head Exam: ATRAUMATIC, NORMOCEPHALIC - Eye Exam Eye Exam: Normal appearance. absent: Conjunctival injection, Scleral icterus - ENT Exam ENT Exam: Mucous Membranes Moist, Normal Oropharynx - Respiratory Exam Respiratory Exam: NORMAL BREATHING PATTERN. absent: Accessory Muscle Use, Respiratory Distress - Cardiovascular Exam Cardiovascular Exam: RRR - GI/Abdominal Exam GI & Abdominal Exam: Soft, Tenderness (mild tenderness shahbaz-incisional). absent : Distended Additional comments: incisions well approximated with dermabond, no drainage or surrounding erythema - Extremities Exam Extremities Exam: absent: Calf Tenderness, Pedal Edema, Tenderness - Neurological Exam Neurological Exam: Alert, Awake, Oriented x3 - Psychiatric Exam Psychiatric exam: Normal Affect, Normal Mood - Skin Skin Exam: Dry, Normal Color, Warm Assessment and Plan - Assessment and Plan (Free Text) Assessment: 68F with SBO POD#3 s/p lysis of adhesions Plan: Advance diet to HHD as tolerated for lunch PRN nausea medication encourage ambulation Continue to monitor bowel function If patient tolerates HHD, will consider discharge tomorrow discussed with Dr. Ana Rivas, PGY2
--- NOTE | 2018-04-04 12:25 | CP.PCM.PN ---
<Jason Leger - Last Filed: 04/04/18 12:23> Subjective - Date & Time of Evaluation Date of Evaluation: 04/04/18 Time of Evaluation: 12:23 - Subjective Subjective: GI Fellow PGY4 Had BM today. No complaints. Tolerating diet. 5pt ROS neg except for above. Objective - Vital Signs/Intake and Output Vital Signs (last 24 hours): Temp Pulse Resp BP Pulse Ox 98.2 F 85 20 135/79 98 04/04/18 07:46 04/04/18 07:46 04/04/18 07:46 04/04/18 07:46 04/04/18 07:46 Intake and Output: 04/04/18 04/04/18 06:59 18:59 Intake Total 420 Output Total 480 Balance -480 420 - Medications Medications: Current Medications Docusate Sodium (Colace) 100 mg PO BID [facility] Last Admin: 04/04/18 10:12 Dose: 100 mg Levothyroxine Sodium (Synthroid) 88 mcg IVP DAILY [facility] Last Admin: 04/04/18 10:12 Dose: 88 mcg Metoclopramide HCl (Reglan) 10 mg IV ONCE PRN PRN Reason: Nausea/Vomiting Ondansetron HCl (Zofran Inj) 4 mg IVP Q6H PRN PRN Reason: Nausea/Vomiting Last Admin: 03/29/18 15:57 Dose: 4 mg Pantoprazole Sodium (Protonix Inj) 40 mg IVP DAILY [facility] Last Admin: 04/04/18 10:11 Dose: 40 mg Simethicone (Mylicon Chew Tab) 80 mg PO Q6 PRN PRN Reason: GI distress Last Admin: 04/04/18 10:12 Dose: 80 mg - Labs Labs: 04/04/18 06:30 04/04/18 06:30 PT 12.8 SECONDS (9.4-12.5) H 03/30/18 16:43 INR 1.12 03/30/18 16:43 APTT 25.6 Seconds (25.1-36.5) 03/30/18 16:43 - Constitutional Appears: Non-toxic, No Acute Distress - Head Exam Head Exam: NORMAL INSPECTION - Eye Exam Eye Exam: Normal appearance - ENT Exam ENT Exam: Mucous Membranes Moist - Respiratory Exam Respiratory Exam: Clear to Ausculation Bilateral, NORMAL BREATHING PATTERN - Cardiovascular Exam Cardiovascular Exam: REGULAR RHYTHM - GI/Abdominal Exam GI & Abdominal Exam: Soft, Normal Bowel Sounds. absent: Tenderness - Extremities Exam Extremities Exam: Normal Inspection - Neurological Exam Neurological Exam: Alert, Awake, Normal Gait, Oriented x3 - Psychiatric Exam Psychiatric exam: Normal Affect, Normal Mood - Skin Skin Exam: Normal Color Assessment and Plan - Assessment and Plan (Free Text) Assessment: 68F with history of gynecologic surgery presenting with SBO #SBO Plan: -s/p lysis of adhesions 04/02/18 -Continue supportive care -Advance diet per surgery. -We will continue to follow with you. -No planned endoscopic procedures. -Colace PO <Diamond,Kovil V - Last Filed: 04/06/18 00:33> Objective - Vital Signs/Intake and Output Vital Signs (last 24 hours): Temp Pulse Resp BP Pulse Ox 98.3 F 85 20 128/73 98 04/05/18 08:22 04/05/18 08:22 04/05/18 08:22 04/05/18 08:22 04/05/18 08:22 Intake and Output: 04/05/18 04/06/18 18:59 06:59 Intake Total 760 Balance 760 - Labs Labs: 04/05/18 06:20 04/05/18 06:20 PT 12.8 SECONDS (9.4-12.5) H 03/30/18 16:43 INR 1.12 03/30/18 16:43 APTT 25.6 Seconds (25.1-36.5) 03/30/18 16:43 Attending/Attestation - Attestation I have personally seen and examined this patient.: Yes I have fully participated in the care of the patient.: Yes I have reviewed all pertinent clinical information, including history, physical exam and plan: Yes Notes (Text): This is an addendum to GI progress report dictated by the GI Fellow.The patient was seen and examined earlier. Medical records, lab studies, imagings were reviewed. Last 24 hours events reviewed. Agreed with the above treatment plan as outlined in GI Fellow 's notes with the addition of the following Tolerating diet Passing flatus and small bowel movement Abdomen soft nontender Discharge plan as per surgery 04/06/18 00:32
[2018-04-04 22:27] VITALS: O2SAT 98
[2018-04-05] MEDS ORDERED: Levothyroxine 88 MCG TAB PO SCH (06:00)
--- NOTE | 2018-04-05 06:16 | DS ---
Copied To: Neema Roman MD Attending MD: Neema Roman MD HISTORY OF PRESENT ILLNESS: The patient is 68 years old, seen and examined, doing well, had bowel movement, tolerating food. No nausea, vomiting or diarrhea. No abdominal pain. No bloating. PHYSICAL EXAMINATION: VITAL SIGNS: The patient is afebrile, pulse 89, respirations 18, and blood pressure 134/75. LUNGS: Bilateral good airflow. No rhonchi or crackle. HEART: S1 and S2 audible. ABDOMEN: Soft, nontender. No rebound, no guarding. NEUROLOGIC: She is awake, alert, oriented, and communicative. LABORATORY EXAM: WBC of 9.4, hemoglobin 12, hematocrit 35.8, platelets 186. Chemistry: Sodium 137, potassium 3.6, chloride 99, CO2 of 30, BUN 7, creatinine 0.6, blood sugar of 89. ASSESSMENT: 1. Status post laparotomy for pelvic adhesion because of previous multiple gynecological surgeries and chocolate cyst and endometriosis. 2. Adhesiolysis. 3. Electrolyte imbalance. 4. Hypothyroidism. PLAN: Currently the patient is doing very well. She is tolerating food. She is ambulating, minimal pain, wound looks okay. She has suprapubic fullness that is probably normal postop changes. Possible discharge tomorrow as per surgical team. Neema Roman MD
--- NOTE | 2018-04-05 06:19 | CP.PCM.PN ---
<Jason Leger - Last Filed: 04/05/18 06:27> Subjective - Date & Time of Evaluation Date of Evaluation: 04/05/18 Time of Evaluation: 06:18 - Subjective Subjective: GI Fellow pgy4 s/e at bedside. No complaints. +BM. Tolerating diet. Likely home today. 5pt ROS neg except for above Objective - Vital Signs/Intake and Output Vital Signs (last 24 hours): Temp Pulse Resp BP Pulse Ox 98.7 F 82 18 135/74 98 04/04/18 22:26 04/04/18 22:26 04/04/18 22:26 04/04/18 22:26 04/04/18 22:26 Intake and Output: 04/04/18 04/05/18 18:59 06:59 Intake Total 420 600 Balance 420 600 - Medications Medications: Current Medications Docusate Sodium (Colace) 100 mg PO BID [facility] Last Admin: 04/04/18 17:42 Dose: 100 mg Levothyroxine Sodium (Synthroid) 88 mcg PO 0600 [facility] Last Admin: 04/05/18 05:51 Dose: 88 mcg Metoclopramide HCl (Reglan) 10 mg IV ONCE PRN PRN Reason: Nausea/Vomiting Ondansetron HCl (Zofran Inj) 4 mg IVP Q6H PRN PRN Reason: Nausea/Vomiting Last Admin: 03/29/18 15:57 Dose: 4 mg Pantoprazole Sodium (Protonix Inj) 40 mg IVP DAILY [facility] Last Admin: 04/04/18 10:11 Dose: 40 mg Simethicone (Mylicon Chew Tab) 80 mg PO Q6 PRN PRN Reason: GI distress Last Admin: 04/04/18 10:12 Dose: 80 mg - Labs Labs: 04/04/18 06:30 04/04/18 06:30 PT 12.8 SECONDS (9.4-12.5) H 03/30/18 16:43 INR 1.12 03/30/18 16:43 APTT 25.6 Seconds (25.1-36.5) 03/30/18 16:43 - Constitutional Appears: Well, Non-toxic, No Acute Distress - Head Exam Head Exam: NORMAL INSPECTION - Eye Exam Eye Exam: Normal appearance - ENT Exam ENT Exam: Mucous Membranes Moist - Respiratory Exam Respiratory Exam: Clear to Ausculation Bilateral, NORMAL BREATHING PATTERN - Cardiovascular Exam Cardiovascular Exam: REGULAR RHYTHM - GI/Abdominal Exam GI & Abdominal Exam: Soft, Normal Bowel Sounds. absent: Tenderness - Extremities Exam Extremities Exam: Normal Inspection - Neurological Exam Neurological Exam: Alert, Awake, Oriented x3 - Psychiatric Exam Psychiatric exam: Normal Affect, Normal Mood - Skin Skin Exam: Dry, Normal Color Assessment and Plan - Assessment and Plan (Free Text) Assessment: 68F with history of gynecologic surgery presenting with SBO #SBO Plan: -s/p lysis of adhesions 04/02/18 -Continue supportive care -Advance diet per surgery. -We will continue to follow with you. -No planned endoscopic procedures. -Colace PO -Okay to go home per GI <Conchis Fields V - Last Filed: 04/06/18 00:54> Objective - Vital Signs/Intake and Output Vital Signs (last 24 hours): Temp Pulse Resp BP Pulse Ox 98.3 F 85 20 128/73 98 04/05/18 08:22 04/05/18 08:22 04/05/18 08:22 04/05/18 08:22 04/05/18 08:22 Intake and Output: 04/05/18 04/06/18 18:59 06:59 Intake Total 760 Balance 760 - Labs Labs: 04/05/18 06:20 04/05/18 06:20 PT 12.8 SECONDS (9.4-12.5) H 03/30/18 16:43 INR 1.12 03/30/18 16:43 APTT 25.6 Seconds (25.1-36.5) 03/30/18 16:43 Attending/Attestation - Attestation I have personally seen and examined this patient.: Yes I have fully participated in the care of the patient.: Yes I have reviewed all pertinent clinical information, including history, physical exam and plan: Yes Notes (Text): This is an addendum to GI progress report dictated by the GI Fellow.The patient was seen and examined earlier. Medical records, lab studies, imagings were reviewed. Last 24 hours events reviewed. Agreed with the above treatment plan as outlined in GI Fellow 's notes with the addition of the following passing flatus Tolerating diet abdomen soft nontender Stool softeners 04/06/18 00:34
[2018-04-05 07:07] LABS: BASO # 0.04 K/mm3 (0.0-2.0); BASO % 0.4 % (0.0-3.0); EOS # 0.3 (0.0-0.7); EOS % 3.7 % (1.5-5.0); GRAN # 5.73 (1.4-6.5); GRAN % 61.8 % (50.0-68.0); HEMOGLOBIN 12.5 g/dL (12.0-16.0); LYMPH # 1.2 (1.2-3.4); LYMPH % 13.4 % (22.0-35.0); MEAN CELL VOLUME 88.1 fl (80.0-105.0); MEAN CORPUSCULAR HEMOGLOBIN 30.3 pg (25.0-35.0); MEAN CORPUSCULAR HGB CONC 34.3 g/dl (31.0-37.0); MONO # 1.9 (0.1-0.6); MONO % 20.7 % (1.0-6.0); PLATELET COUNT 196 10^3/uL (120.0-450.0); RBC 4.13 10^6/uL (3.5-6.1); WHITE BLOOD COUNT 9.3 10^3/ul (4.5-11.0)
[2018-04-05 07:32] LABS: ALB/GLOB RATIO 1.2 (1.1-1.8); ALBUMIN 3.1 g/dL (3.0-4.8); ALT/SGPT 21 U/L (7-56); AST/SGOT 22 U/L (14-36); BLOOD UREA NITROGEN 6 mg/dL (7-21); CALCIUM 9.3 mg/dL (8.4-10.5); GFR NON-AFRICAN AMERICAN > 60
--- NOTE | 2018-04-05 08:08 | CP.PCM.PN ---
Subjective - Date & Time of Evaluation Date of Evaluation: 04/05/18 Time of Evaluation: 06:50 - Subjective Subjective: Rudy Eduardo DO, PGY-1 General Surgery Progress Note for Dr. Archer Patient was seen and examined at bedside with surgery team. Patient reports feeling well this morning and is tolerating HHD well without nausea/vomiting/ abdominal pain. She was able to shower Wednesday, is feeling better, and feels ready to go home today. Objective - Vital Signs/Intake and Output Vital Signs (last 24 hours): Temp Pulse Resp BP Pulse Ox 98.7 F 82 18 135/74 98 04/04/18 22:26 04/04/18 22:26 04/04/18 22:26 04/04/18 22:26 04/04/18 22:26 Intake and Output: 04/05/18 04/05/18 06:59 18:59 Intake Total 600 500 Balance 600 500 - Medications Medications: Current Medications Docusate Sodium (Colace) 100 mg PO BID [facility] Last Admin: 04/04/18 17:42 Dose: 100 mg Levothyroxine Sodium (Synthroid) 88 mcg PO 0600 [facility] Last Admin: 04/05/18 05:51 Dose: 88 mcg Metoclopramide HCl (Reglan) 10 mg IV ONCE PRN PRN Reason: Nausea/Vomiting Ondansetron HCl (Zofran Inj) 4 mg IVP Q6H PRN PRN Reason: Nausea/Vomiting Last Admin: 03/29/18 15:57 Dose: 4 mg Pantoprazole Sodium (Protonix Inj) 40 mg IVP DAILY [facility] Last Admin: 04/04/18 10:11 Dose: 40 mg Simethicone (Mylicon Chew Tab) 80 mg PO Q6 PRN PRN Reason: GI distress Last Admin: 04/04/18 10:12 Dose: 80 mg - Labs Labs: 04/05/18 06:20 04/05/18 06:20 PT 12.8 SECONDS (9.4-12.5) H 03/30/18 16:43 INR 1.12 03/30/18 16:43 APTT 25.6 Seconds (25.1-36.5) 03/30/18 16:43 - Constitutional Appears: Non-toxic, No Acute Distress - Head Exam Head Exam: ATRAUMATIC, NORMAL INSPECTION - ENT Exam ENT Exam: Mucous Membranes Moist - Neck Exam Neck Exam: Full ROM - GI/Abdominal Exam GI & Abdominal Exam: Soft, Normal Bowel Sounds. absent: Distended, Guarding, Tenderness, Rebound - Neurological Exam Neurological Exam: Alert, Awake, Oriented x3 - Psychiatric Exam Psychiatric exam: Normal Affect, Normal Mood - Skin Skin Exam: Dry, Intact Assessment and Plan - Assessment and Plan (Free Text) Assessment: 68 year old female with SBO POD#4 s/p lysis of adhesions. Plan: -Advance diet as tolerated -Clear for discharge from surgical standpoint -Follow up with Dr. Archer in clinic in 1 week Case and plan reviewed with Dr. Gianni Eduardo DO IM Resident PGY-1
[2018-04-05 08:23] VITALS: BP 128/73; PULSE 85; RESP 20; TEMP 98.3
[2018-04-05 09:05] LABS: ATYPICAL LYMPHOCYTE 1 % (0.0-0.0); EOSINOPHIL 4 % (0.0-3.0); LYMPHOCYTE 13 % (22.0-35.0); MONOCYTE 19 % (1.0-6.0); NEUTROPHIL 63 % (50.0-70.0); PLATELET ESTIMATE NORMAL (NORMAL)
--- NOTE | 2018-04-05 14:31 | CP.PCM.DIS ---
Provider - Provider Date of Admission: 03/29/18 04:15 Attending physician: Jose Antonio Craft MD Consults: Surgery - Dr. Valderrama GI - Dr. Fields Time Spent in preparation of Discharge (in minutes): 45 Diagnosis - Discharge Diagnosis (1) Hypothyroid Status: Chronic (2) Small bowel obstruction Status: Resolved Hospital Course - Lab Results Lab Results: Most Recent Lab Values WBC 9.3 10^3/ul (4.5-11.0) 04/05/18 06:20 RBC 4.13 10^6/uL (3.5-6.1) 04/05/18 06:20 Hgb 12.5 g/dL (12.0-16.0) 04/05/18 06:20 Hct 36.4 % (36.0-48.0) 04/05/18 06:20 MCV 88.1 fl (80.0-105.0) 04/05/18 06:20 MCH 30.3 pg (25.0-35.0) 04/05/18 06:20 MCHC 34.3 g/dl (31.0-37.0) 04/05/18 06:20 RDW 13.0 % (11.5-14.5) 04/05/18 06:20 Plt Count 196 10^3/uL (120.0-450.0) 04/05/18 06:20 MPV 11.0 fl (7.0-11.0) 04/05/18 06:20 Gran % 61.8 % (50.0-68.0) 04/05/18 06:20 Lymph % (Auto) 13.4 % (22.0-35.0) L 04/05/18 06:20 [place] % (Auto) 20.7 % (1.0-6.0) H 04/05/18 06:20 Eos % (Auto) 3.7 % (1.5-5.0) 04/05/18 06:20 Baso % (Auto) 0.4 % (0.0-3.0) 04/05/18 06:20 Gran # 5.73 (1.4-6.5) 04/05/18 06:20 Lymph # (Auto) 1.2 (1.2-3.4) 04/05/18 06:20 Cecil # (Auto) 1.9 (0.1-0.6) H 04/05/18 06:20 Eos # (Auto) 0.3 (0.0-0.7) 04/05/18 06:20 Baso # (Auto) 0.04 K/mm3 (0.0-2.0) 04/05/18 06:20 Neutrophils % (Manual) 63 % (50.0-70.0) 04/05/18 06:20 Lymphocytes % (Manual) 13 % (22.0-35.0) L 04/05/18 06:20 Atypical Lymphs % 1 % (0.0-0.0) H 04/05/18 06:20 Monocytes % (Manual) 19 % (1.0-6.0) H 04/05/18 06:20 Eosinophils % (Manual) 4 % (0.0-3.0) H 04/05/18 06:20 Platelet Evaluation Normal (NORMAL) 04/05/18 06:20 PT 12.8 SECONDS (9.4-12.5) H 03/30/18 16:43 INR 1.12 03/30/18 16:43 APTT 25.6 Seconds (25.1-36.5) 03/30/18 16:43 Sodium 136 mmol/L (132-148) 04/05/18 06:20 Potassium 4.0 mmol/L (3.6-5.0) 04/05/18 06:20 Chloride 99 mmol/L (98-107) 04/05/18 06:20 Carbon Dioxide 30 mmol/L (21-33) 04/05/18 06:20 Anion Gap 11 (10-20) 04/05/18 06:20 BUN 6 mg/dL (7-21) L 04/05/18 06:20 Creatinine 0.6 mg/dl (0.7-1.2) L 04/05/18 06:20 Est GFR ( Amer) > 60 04/05/18 06:20 Est GFR (Non-Af Amer) > 60 04/05/18 06:20 Random Glucose 90 mg/dL (70-110) 04/05/18 06:20 Calcium 9.3 mg/dL (8.4-10.5) 04/05/18 06:20 Total Bilirubin 1.2 mg/dL (0.2-1.3) 04/05/18 06:20 AST 22 U/L (14-36) 04/05/18 06:20 ALT 21 U/L (7-56) 04/05/18 06:20 Alkaline Phosphatase 52 U/L (38-126) 04/05/18 06:20 Total Protein 5.8 g/dL (5.8-8.3) 04/05/18 06:20 Albumin 3.1 g/dL (3.0-4.8) 04/05/18 06:20 Globulin 2.6 gm/dL 04/05/18 06:20 Albumin/Globulin Ratio 1.2 (1.1-1.8) 04/05/18 06:20 Lipase 126 U/L (23-300) 03/28/18 23:50 Urine Color Yellow (YELLOW) 03/28/18 23:50 Urine Appearance Cloudy (CLEAR) 03/28/18 23:50 Urine pH 8.0 (4.7-8.0) 03/28/18 23:50 Ur Specific [place] 1.015 (1.005-1.035) 03/28/18 23:50 Urine Protein Trace mg/dL (<30 mg/dL) H 03/28/18 23:50 Urine Glucose (UA) Negative mg/dL (NEGATIVE) 03/28/18 23:50 Urine Ketones >=80 mg/dL (NEGATIVE) 03/28/18 23:50 Urine Blood Negative (NEGATIVE) 03/28/18 23:50 Urine Nitrate Negative (NEGATIVE) 03/28/18 23:50 Urine Bilirubin Negative (NEGATIVE) 03/28/18 23:50 Urine Urobilinogen 0.2 E.U./dL (<1 E.U./dL) 03/28/18 23:50 Ur Leukocyte Esterase Negative Thelma/uL (NEGATIVE) 03/28/18 23:50 Urine RBC Negative /hpf (0-2) 03/28/18 23:50 Urine WBC Negative /hpf (0-6) 03/28/18 23:50 Ur Epithelial Cells 3 - 4 /hpf (0-5) 03/28/18 23:50 Amorphous Sediment Moderate 03/28/18 23:50 Urine Bacteria Few (NEG) 03/28/18 23:50 Urine Other Mucus 03/28/18 23:50 Blood Type O NEGATIVE 03/30/18 16:43 Blood Type Confirm O NEGATIVE 03/30/18 21:42 Antibody Screen Negative 03/30/18 16:43 BBK History Checked No verified bt 03/30/18 16:43 - Hospital Course Hospital Course: 68 year old female with past medical history of hypothyroidism and a-fib s/p cardioversion presented with nausea, vomiting and abdominal pain. Patient had CT of abdomen/pelvis which showed small bowel obstruction. Patient was placed on bowel rest initially, but after no improvement, patient was taken to OR. Patient underwent lysis of adhesions, which improved her symptoms. Patient was able to tolerate diet well and with minimal pain. Patient will follow up with PMD and surgeon. Discharge Exam - Head Exam Head Exam: ATRAUMATIC, NORMAL INSPECTION - Respiratory Exam Respiratory Exam: NORMAL BREATHING PATTERN, UNREMARKABLE - Cardiovascular Exam Cardiovascular Exam: RRR, +S1, +S2 - GI/Abdominal Exam GI & Abdominal Exam: Normal Bowel Sounds, Soft. absent: Tenderness - Extremities Exam Extremities exam: normal inspection - Neurological Exam Neurological exam: Alert, CN II-XII Intact, Oriented x3 - Psychiatric Exam Psychiatric exam: Normal Affect, Normal Mood - Skin Skin Exam: Intact, Normal Color, Warm Discharge Plan - Follow Up Plan Condition: STABLE Disposition: HOME/ ROUTINE Instructions: Hypothyroidism (Underactive Thyroid), Small Bowel Obstruction, Laparoscopy, Mechanical Bowel Obstruction (DC), Colon Stricture (DC) Additional Instructions: You have been discharged from [facility]. TO FOLLOW UP WITH DR SIEGEL AND DR NEGRON OUTPATIENT. Referrals: Aquilino Negron MD [Family Provider] - Andrea Siegel MD [Staff Provider] -
[2018-04-06] MEDS ORDERED: Pantoprazole 40 mg EC Tab PO SCH (07:30)
== END 2018-04-05 11:50 | disposition home or self-care (01) | DRG 337 ==
LOC: ED 22:33 → ERH 03-29 04:15 → 5RNO 03-29 06:02
PROVIDERS: ADMIT Internal Medicine Nephrology; ATTEND Internal Medicine Nephrology
PROC: 0DNW4ZZ Release Peritoneum, Percutaneous Endoscopic Approach (ICD-10-PCS; principal; 2018-04-01 07:30)
DX: K56.51 Intestinal adhesions [bands], with partial obstruction (principal); E03.9 Hypothyroidism, unspecified; I48.91 Unspecified atrial fibrillation; K70.40 Alcoholic hepatic failure without coma; F10.10 Alcohol abuse, uncomplicated; M81.0 Age-related osteoporosis without current pathological fracture; Z79.82 Long term (current) use of aspirin; Z90.49 Acquired absence of other specified parts of digestive tract; Z90.710 Acquired absence of both cervix and uterus